=== PATIENT | male | born 1960 | race Hispanic/Latino ===

== ENCOUNTER → 2018-08-04 | Day surgery (SDC) | payer OTHER ==
[2018-07-25 14:45] LABS: HEMOGLOBIN 14.3 g/dL (14.0-18.0)
[2018-07-25 14:59] LABS: BLOOD UREA NITROGEN 8 mg/dL (7-26); BUN/CREATININE RATIO 9 (6-25); CALCIUM 9.8 mg/dL (8.4-10.2); CARBON DIOXIDE 30 mmol/L (22-29); CHLORIDE 101 mmol/L (98-107); CREATININE, SERUM 0.91 mg/dL (0.72-1.25); EST GLOMERULAR FILTRATION RATE > 60 ML/MIN (60-); GLUCOSE 106 mg/dL (74-118); SODIUM 142 mmol/L (136-145)
[~2018-08-04] MED LIST: AMLODIPINE BESY10 MG PO; BASAGLAR SC; CHONDR SU A NA/HYALUR SOD 1 EACH KIT IO ONE; CYCLOPENTOLATE HCL 2% OPTH SOLN 2 ML BTL OP ONE; EPINEPHRINE HCL INJ 1 MG/ML AMP ONE; FENOFIBRATE145 MG PO; FENTANYL CITRATE/PF 100MCG/2 ML INJ ONE; GATIFLOXACIN(OPTH) 5 ML LIQD ONE; KLOR CON PO; LIDOCAINE 2% /EPINEPHRINE 20 ML SDV INJ ONE; LIDOCAINE HCL 2% LOCAL INJ 5 ML SDV VIAL INJ ONE; LIDOCAINE HCL-PF 4% 40 MG/1 ML 5ML AMP ONE; PHENYLEPHRINE HCL 2 ML DROPS ONE; PILOCARPINE HCL(OPTH) 15 ML LIQD ONE; POTASSIUM CHLORIDE 20MEQ/100ML 100 ML ONE; POVIDONE IODINE 5% (OPTH) 30 ML BTL ONE; PROPOFOL IV EMULSION 10 MG/ML 20 ML VIAL ONE; TOBRAMYCIN/DEXAMETHASONE(OPTH) 3.5 GM TUBE ONE
--- OUTSIDE RECORDS SUMMARY | 2018-08-04 05:26 | XMS REPORT | Continuity of Care Document ---
Author Author [facility] Interface Address Unknown Phone Unavailable Problems Problem Status Onset Date Classification Date Reported Comments Source DIZZINESS / SOB Active 06/18/2017 [facility] SIRS, PNA, DYSURIA Active 06/18/2017 [facility] Discharge Diagnosis: Low back pain 05/04/2017 05/07/2017 [facility] LOWER BACK PAIN Active 05/03/2017 [facility] Discharge Diagnosis: Fever 10/08/2016 10/11/2016 [facility] FEVER / CHILLS Active 10/08/2016 [facility] ELEVATED BLOOD PRESSURE Active 05/08/2014 [facility] TIA/HTN.RENAL INSUFF Active 05/08/2014 [facility] Chest pain Active Problem 10/11/2016 [facility] Excessive daytime sleepiness Active Problem 03/19/2018 [facility] Fatigue Active Problem 03/19/2018 [facility] HTN - Hypertension Active Problem 03/19/2018 [facility] Hyperlipidemia Active Problem 03/19/2018 [facility] Hypertension Active Problem 03/19/2018 [facility] Hypokalemia Active Problem 03/19/2018 [facility] Low testosterone Active Problem 03/19/2018 [facility] Abnormal liver enzymes Active Problem 03/19/2018 [facility] Moderate major depression Active Problem 03/19/2018 [facility] Depression Resolved Problem 03/19/2018 [facility] Obstructive sleep apnea Active Problem 03/19/2018 [facility] Prediabetes Active Problem 03/19/2018 [facility] Sleep apnea Active Problem 03/19/2018 [facility] SEPSIS, UNSPECIFIED ORGANISM Active [facility] PNEUMONIA, UNSPECIFIED ORGANISM Active [facility] Medications Medication Details Route Status Patient Instructions Ordering Provider Order Date Source sertraline 50 mg oral tablet 50 mg=1 tab, PO, Daily, # 90 tab, 1 Refill(s), Pharmacy: [id number] Active 08/19/[facility] amLODIPine 10 mg oral tablet 10 mg=1 tab, PO, Daily, # 90 tab, 1 Refill(s), Pharmacy: [id number] Active 08/19/2017 [facility] Testosterone Cypionate 200 mg/mL intramuscular solution 200 mg=1 ml, IM, q2wk, Please provide 3cc syringe with 23G x 1inch needles for IM injections, # 10 mL, 2 Refill(s) Active 08/11/2017 [facility] Saccharomyces boulardii lyo 250 MG Oral Capsule [Florastor] 250 mg=1 cap, PO, BID, PRN for loose stool, X 5 day, # 10 cap, 0 Refill(s), Pharmacy: [id number] Active 06/22/2017 [facility] levofloxacin 250 mg oral tablet 750 mg=3 tab, PO, [id number], X 5 day, # 15 tab, 0 Refill(s), Pharmacy: [id number] Active 06/22/2017 [facility] Levaquin 750 mg, 3 tab, Route: PO, Drug form: TAB, [id number], Dosing Weight 71.008, kg, Start date: 06/21/17 23:00:00 CDT, Duration: 7 day, Stop date: 06/27/17 23:00:00 CDT, ABX Indication: Other (specify in Comme nts)Notes: Do not give w/antacids, dairy pdt & minerals Take 1 hr before or 2 hr after dairy pdt (Same as:Levaquin) No Longer Active 06/22/2017 [facility] potassium chloride 20 mEq oral tablet, extended release 20 mEq, 1 tab, Route: PO, Drug form: ERTAB, Daily, Dosing Weight 71.008, kg, Start date: 06/21/17 9:00:00 CDT, Duration: 30 day, Stop date: 07/20/17 9:00:00 CDTNotes: (Same as: K-Dur 20) "Do Not Crush" With food and full glass of water No Longer Active 06/21/2017 [facility] Fenofibrate 145 MG Oral Tablet 145 mg, 1 tab, Route: PO, Drug form: TAB, Daily, Dosing Weight 71.008, kg, Start date: 06/21/17 9:00:00 CDT, Duration: 30 day, Stop date: 07/20/17 9:00:00 CDTNotes: (Same as: Tricor) No Longer Active 06/21/2017 [facility] Bisoprolol 10 mg, 2 tab, Route: PO, Drug form: TAB, Daily, Dosing Weight 71.008, kg, Start date: 06/21/17 9:00:00 CDT, Duration: 30 day, Stop date: 07/20/17 9:00:00 CDTNotes: (Same As: Zebeta) No Longer Active 06/21/2017 [facility] Amlodipine 5 mg, 1 tab, Route: PO, Drug form: TAB, Daily, Dosing Weight 71.008, kg, Start date: 06/20/17 21:00:00 CDT, Duration: 30 day, Stop date: 07/20/17 9:00:00 CDTNotes: (Same as: Norvasc) No Longer Active 06/21/2017 [facility] Potassium Chloride 20 mEq, 1 tab, Route: PO, Drug form: ERTAB, Q2H, Dosing Weight 71.008, kg, Start date: 06/20/17 12:00:00 CDT, Duration: 2 doses or times, Stop date: 06/20/17 14:00:00 CDTNotes: (Same as: K- Dur 20) "Do Not Crush" With food and full glass of water Inactive 06/20/2017 [facility] Rocephin + sodium chloride 0.9% INJ 100 mL 2 gm, Route: IVPB, [id number], Dosing Weight 71.364, kg, Start date: 06/20/17 9:00:00 CDT, Duration: 5 day, Stop date: 06/24/17 21:00:00 CDT, ABX Indication: Other (specify in Comments)Notes: (Same As: Rocephin). Use with 100 mL NS and infuse over 30 min MEDICATION WASTE Product Size: 2000 mg Product Wasted: ___ mg No Longer Active 06/20/2017 [facility] vancomycin + sodium chloride 0.9% INJ 250 mL 1,000 mg, Route: IVPB, [id number], Dosing Weight 71.008, kg, Start date: 06/20/17 1:00:00 CDT, Duration: 2 day, Stop date: 06/21/17 13:00:00 CDT, ABX Indication: Fever of Unknown Source 0-60 days of ageNotes: TIME CRITICAL MEDICATION (Same As: Vancocin) Infusion rate 2001 mg: infuse over 2.5 hours MEDICATION WASTE Product Size: 1000 mg Product Wasted: ___ mg No Longer Active 06/20/2017 [facility] Acetaminophen 325 MG / Hydrocodone Bitartrate 5 MG Oral Tablet [Welton 5/325] 1 tab, Route: PO, Drug Form: TAB, Dosing Weight 71.008, kg, Q4H, PRN Pain Score 1-3, Start date: 06/19/17 20:41:00 CDT, Duration: 30 day, Stop date: 07/19/17 20:40:00 CDTNotes: (Same as: Welton 325/5) Do not exceed 4gm/day of acetaminophen. No Longer Active 06/20/2017 [facility] Vancomycin 1,000 mg, Route: IVPB, [id number], Dosing Weight 71.008, kg, Start date: 06/19/17 20:00:00 CDT, Duration: 2 day, Stop date: 06/21/17 8:00:00 CDT, ABX Indication: Fever of Unknown Source 0-60 days of age Notes: TIME CRITICAL MEDICATION (Same As: Vancocin) Infusion rate 2001 mg: infuse over 2.5 hours MEDICATION WASTE Product Size: 1000 mg Product Wasted: ___ mg Inactive 06/20/2017 [facility] cefTRIAXone + sodium chloride 0.9% INJ 100 mL 1 gm, Route: IVPB, ONCE, Start date: 06/19/17 13:32:00 CDT, Stop date: 06/19/17 13:32:00 CDT, ABX Indication: Other (specify in Comments)Notes: (Same As: Rocephin). Use with 100 mL NS and infuse over 30 min MEDICATION WASTE Product Size: 1000 mg Product Wasted: ___ mg Inactive 06/19/2017 [facility] Ampicillin 2 gm, Route: IVPB, [id number], Dosing Weight 71.364, kg, Start date: 06/19/17 12:00:00 CDT, Duration: 30 day, Stop date: 07/19/17 6:00:00 CDTNotes: (Same as: Becki) MEDICATION WASTE Product Size: 2000 mg Product Wasted: ___ mg Inactive 06/19/2017 [facility] Rocephin 2 gm, Route: IVPB, [id number], Dosing Weight 71.364, kg, Start date: 06/19/17 12:00:00 CDT, Duration: 5 day, Stop date: 06/24/17 9:00:00 CDT, ABX Indication: Other (specify in Comments)Notes: (Same As: Anurag ephin). Use with 100 mL NS and infuse over 30 min MEDICATION WASTE Product Size: 2000 mg Product Wasted: ___ mg Inactive 06/19/2017 [facility] Azithromycin 500 mg, Route: IVPB, [id number], Dosing Weight 70.909, kg, Priority: Routine, Start date: 06/19/17 12:00:00 CDT, Duration: 5 day, Stop date: 06/23/17 21:00:00 CDT, ABX Indication: PneumoniaNotes: (Same As: Zithromax IV) Inactive 06/19/2017 [facility] Tylenol 325 mg, 1 tab, Route: PO, Drug form: TAB, Q6H, Dosing Weight 71.364, kg, PRN Pain Score 1-3, Start date: 06/19/17 11:14:00 CDT, Duration: 30 day, Stop date: 07/19/17 11:13:00 CDTNotes: Do not exceed 4 gm/day. (Same as: Tylenol) No Longer Active 06/19/2017 [facility] Vancomycin 1 gm, Route: IV, ONCE, Dosing Weight 71.364, kg, Priority: NOW, Start date: 06/19/17 11:13:00 CDT, Stop date: 06/19/17 11:13:00 CDT, ABX Indication: PneumoniaNotes: TIME CRITICAL MEDICATION (Same As: Vancocin) Infusion rate 2001 mg: infuse over 2.5 hours MEDICATION WASTE Product Size: 1000 mg Product Wasted: ___ mg Inactive 06/19/2017 [facility] Ceftriaxone 1 gm, Route: IVPB, [id number], Dosing Weight 70.909, kg, Priority: Routine, Start date: 06/19/17 10:00:00 CDT, Duration: 5 day, Stop date: 06/23/17 10:00:00 CDT, ABX Indication: PneumoniaNotes: (Same As: Wyatt diamond). Use with 100 mL NS and infuse over 30 min MEDICATION WASTE Product Size: 1000 mg Product Wasted: ___ mg Inactive 06/19/2017 [facility] influenza virus vaccine, inactivated 0.5 mL, Route: IM, Drug Form: SUSP, Daily, Start date: 06/19/17 9:00:00 CDT, Duration: 1 doses or times, Stop date: 06/19/17 9:00:00 CDTNotes: (Same as: Fluzone Quadrivalent, Fluarix Quadrivalent) For 3 years of age and older (0.5 mL IM) Shake well before use Inactive 06/19/2017 [facility] Tylenol 650 mg, 20.3 mL, Route: PO, Drug form: LIQ, Q6H, Dosing Weight 71.364, kg, PRN Pain 4-6/Temp > 100.4 F, Start date: 06/19/17 4:08:00 CDT, Duration: 30 day, Stop date: 07/19/17 4:07:00 CDTNotes: Max [id number]/day (4 gm/day). (Same as: Tylenol) Inactive 06/19/2017 [facility] Motrin 400 mg, 1 tab, Route: PO, Drug form: TAB, ONCE, Dosing Weight 71.364, kg, Start date: 06/18/17 18:30:00 CDT, Stop date: 06/18/17 18:30:00 CDTNotes: (Same as: Motrin) "Do Not Crush" Give with food. Inactive 06/18/2017 [facility] Ondansetron 4 mg, 2 mL, Route: IVP, Drug form: INJ, Q6H, Dosing Weight 70.909, kg, PRN Nausea & Vomiting, Start date: 06/18/17 14:03:00 CDT, Duration: 30 day, Stop date: 07/18/17 14:02:00 CDTNotes: (Same as: Zofran) MEDICATION WASTE Product Size: 4 mg Product Wasted: ___ mg No Longer Active 06/18/2017 [facility] Potassium Chloride 10 mEq, 100 mL, Route: IVPB, Drug form: INJ, Q1H, Dosing Weight 70.909, kg, Total Dose=40 meq, Start date: 06/18/17 12:00:00 CDT, Duration: 4 doses or times, Stop date: 06/18/17 15:00:00 CDT, Peripheral LineNotes: Infuse at a rate of 10 mEq/hr. (Same as: KCL) Inactive 06/18/2017 [facility] Azithromycin 500 mg, Route: IVPB, ONCE, Dosing Weight 70.909, kg, Priority: STAT, Start date: 06/18/17 11:56:00 CDT, Duration: 1 doses or times, Stop date: 06/18/17 11:56:00 CDT, ABX Indication: PneumoniaNotes: (Same As: Zithromax IV) Inactive 06/18/2017 [facility] Tylenol 500 mg, PO, Q6H, PRN Pain 1-3/Temp > 100.4 F, 0 Refill(s) No Longer Active 06/18/2017 [facility] Rocephin 1 gm, Route: IVPB, Drug form: PDR/INJ, ONCE, Dosing Weight 70.909, kg, Priority: STAT, Start date: 06/18/17 9:45:00 CDT, Duration: 1 doses or times, Stop date: 06/18/17 9:45:00 CDT, ABX Indication: ED - Suspected Sepsis Inactive 06/18/2017 [facility] Sodium Chloride 0.9% (Bolus) IV 1,000 mL, Infuse Over: 1 hr, Route: IV, ONCE, Priority: STAT, Dosing Weight 70.909 kg, Start date: 06/18/17 9:44:00 CDT, Duration: 1 doses or times, Stop date: 06/18/17 9:44:00 CDT Inactive 06/18/2017 [facility] Acetaminophen 1,000 mg, Route: PO, Drug form: TAB, ONCE, Dosing Weight 70.909, kg, Priority: STAT, Start date: 06/18/17 9:44:00 CDT, Stop date: 06/18/17 9:44:00 CDT Inactive 06/18/2017 [facility] tramadol hydrochloride 50 MG Oral Tablet [Ultram] 25 mg=0.5 tab, PO, Q6H, PRN pain, X 3 day, # 6 tab, 0 Refill(s) Active 05/04/2017 [facility] Potassium Chloride 40 mEq, 2 tab, Route: PO, Drug form: ERTAB, ONCE, Dosing Weight 74.091, kg, Priority: STAT, Start date: 05/04/17 3:09:00 CDT, Stop date: 05/04/17 3:09:00 CDTNotes: (Same as: K-Dur 20) "Do Not Crush" With food and full glass of water Inactive 05/04/2017 [facility] Ketorolac 15 mg, 1 mL, Route: IVP, Drug form: INJ, ONCE, Dosing Weight 74.091, kg, Priority: STAT, Start date: 05/04/17 2:28:00 CDT, Stop date: 05/04/17 2:28:00 CDTNotes: (Same as:Toradol) IV bolus must be given >15 seconds. Give IM administration slowly and deeply into the muscle. Not for use > 4 days. Inactive 05/04/2017 [facility] Ondansetron 4 mg, Route: IVP, ONCE, Dosing Weight 69.091, kg, Priority: STAT, Start date: 10/08/16 6:52:00 SEROLOGIST, Stop date: 10/08/16 6:52:00 SEROLOGIST Inactive 10/08/2016 [facility] Acetaminophen 650 mg, Route: PO, Drug form: TAB, ONCE, Dosing Weight 69.091, kg, Priority: STAT, Start date: 10/08/16 6:52:00 SEROLOGIST, Stop date: 10/08/16 6:52:00 SEROLOGIST Inactive 10/08/2016 [facility] Saline Flush 0.9% 10 mL, Route: IVP, Drug Form: INJ, Dosing Weight 69.091, kg, PRN, PRN Line Flush, Start date: 10/08/16 6:52:00 SEROLOGIST, Duration: 30 day, Stop date: 11/07/16 6:51:00 CSTNotes: (Same as: BD Posiflush) Inactive 10/08/2016 [facility] Sodium Chloride 0.154 MEQ/ML Injectable Solution 1,000 mL, Infuse Over: 1 hr, Route: IV, ONCE, Priority: STAT, Dosing Weight 69.091 kg, Start date: 10/08/16 6:52:00 SEROLOGIST, Duration: 1 doses or times, Stop date: 10/08/16 6:52:00 SEROLOGIST Inactive 10/08/2016 [facility] Lipitor 10 mg, 1 tab, Route: PO, Drug form: TAB, QPM, Dosing Weight 65.909, kg, Start date: 05/09/14 17:00:00, Duration: 30 day, Stop date: 06/07/14 17:00:00Notes: (Same As: Lipitor) Inactive 05/09/2014 [facility] amLODIPine 5 mg oral tablet 5 mg=1 tab, PO, Daily, # 30 tab, 0 Refill(s) Active 05/09/2014 [facility] Potassium Chloride 40 mEq, 30 mL, Route: PO, Drug form: LIQ, ONCE, Dosing Weight 65.909, kg, Start date: 05/09/14 10:57:00, Stop date: 05/09/14 10:57:00Notes: (Same as: Potassium Chloride) Inactive 05/09/2014 [facility] clopidogrel 75 mg, 1 tab, Route: PO, Drug form: TAB, Daily, Dosing Weight 65.909, kg, Start date: 05/09/14 9:00:00, Duration: 30 day, Stop date: 06/07/14 9:00:00Notes: (Same As: Plavix) Inactive 05/09/2014 [facility] Aspirin 325 MG Enteric Coated Tablet 325 mg, 1 tab, Route: PO, Drug form: ECTAB, Daily, Dosing Weight 65.909, kg, Start date: 05/09/14 9:00:00, Duration: 30 day, Stop date: 06/07/14 9:00:00Notes: (Do Not Crush) Do not crush or chew. Inactive 05/09/2014 [facility] Norvasc 2.5 mg, 1 tab, Route: PO, Drug form: TAB, BID, Dosing Weight 65.909, kg, Start date: 05/08/14 17:00:00, Duration: 30 day, Stop date: 06/07/14 9:00:00Notes: (Same as: Norvasc) Inactive 05/08/2014 [facility] Norvasc 5 mg, 1 tab, Route: PO, Drug form: TAB, Daily, Dosing Weight 65.909, kg, Priority: NOW, Start date: 05/08/14 16:24:00, Duration: 30 day, Stop date: 06/07/14 9:00:00Notes: (Same as: Norvasc) No Longer Active 05/08/2014 [facility] Acetaminophen 325 MG / Hydrocodone Bitartrate 5 MG Oral Tablet [Welton 5/325] 1 tab, Route: PO, Drug Form: TAB, Dosing Weight 65.909, kg, Q6H, PRN Pain Score 1-3, Start date: 05/08/14 16:19:00, Duration: 30 day, Stop date: 06/07/14 16:18:00Notes: (Same as: Welton 325/5) Do not exceed 4gm/day of acetaminophen. No Longer Active 05/08/2014 [facility] Hydralazine 10 mg, 0.5 mL, Route: IV, Drug form: INJ, Q6H, Dosing Weight 65.909, kg, PRN Elevated BP, Start date: 05/08/14 16:17:00, Duration: 30 day, Stop date: 06/07/14 16:16:00Notes: (Same as: Apresoline) Push over 5 minutes No Longer Active 05/08/2014 [facility] Saline Flush 0.9% 5 ml, Route: IVP, Drug Form: INJ, Dosing Weight 65.909, kg, PRN, PRN Line Flush, Start date: 05/08/14 15:22:00, Duration: 30 day, Stop date: 06/07/14 15:21:00Notes: (Same as: BD Posiflush) No Longer Active 05/08/2014 [facility] Sodium Chloride 0.154 MEQ/ML Injectable Solution 1,000 mL, Rate: 125 ml/hr, Infuse over: 8 hr, Route: IV, Dosing Weight 65.909 kg, Total Volume: 1,000, Start date: 05/08/14 15:22:00, Duration: 30 day, Stop date: 06/07/14 15:21:00 No Longer Active 05/08/2014 [facility] aspirin 325 mg tablet 325 mg, 1 tab, Route: PO, Drug form: TAB, Daily, Dosing Weight 65.909, kg, Priority: STAT, Start date: 05/08/14 15:22:00, Duration: 30 day, Stop date: 06/07/14 9:00:00Notes: Take with food. Inactive 05/08/2014 [facility] Ondansetron 4 mg, 2 mL, Route: IVP, Drug form: INJ, Q8H, Dosing Weight 65.909, kg, PRN Nausea & Vomiting, Start date: 05/08/14 15:22:00, Duration: 30 day, Stop date: 06/07/14 15:21:00Notes: (Same as: Zofran) No Longer Active 05/08/2014 [facility] Docusate 100 mg, 1 cap, Route: PO, Drug form: CAP, BID, Dosing Weight 65.909, kg, PRN Constipation, Start date: 05/08/14 15:22:00, Duration: 30 day, Stop date: 06/07/14 15:21:00Notes: (Same as: Colace) (Do Not Crush) No Longer Active 05/08/2014 [facility] Acetaminophen 650 mg, 20.3 mL, Route: PO, Drug form: LIQ, Q4H, Dosing Weight 65.909, kg, PRN Pain 1-3/Temp > 100.4 F, Start date: 05/08/14 15:22:00, Duration: 30 day, Stop date: 06/07/14 15:21:00Notes: Max viji [id number]/day (4 gm/day). (Same as: Tylenol) No Longer Active 05/08/2014 [facility] aspirin 325 mg tablet 325 mg, Route: PO, Drug form: TAB, ONCE, Dosing Weight 65.909, kg, dysphagia screen first, Priority: STAT, Start date: 05/08/14 14:03:00, Stop date: 05/08/14 14:03:00 Inactive 05/08/2014 [facility] Potassium Chloride 40 mEq, 2 tab, Route: PO, Drug form: ERTAB, ONCE, Dosing Weight 65.909, kg, Priority: STAT, Start date: 05/08/14 13:35:00, Stop date: 05/08/14 13:35:00Notes: (Same as: K-Dur 20) "Do Not Crush" With food and full glass of water Inactive 05/08/2014 [facility] aspirin 325 mg tablet 325 mg, 1 tab, Route: PO, Drug form: TAB, ONCE, Dosing Weight 65.909, kg, dysphagia screen first, Priority: STAT, Start date: 05/08/14 11:14:00, Stop date: 05/08/14 11:14:00Notes: Take with food. Inactive 05/08/2014 [facility] Aspirin / Calcium Carbonate 0 Refill(s) Active 05/08/2014 [facility] Hydrochlorothiazide 12.5 MG / Losartan Potassium 100 MG Oral Tablet 0 Refill(s) No Longer Active 05/08/2014 [facility] Allergies, Adverse Reactions, Alerts Substance Category Reaction Severity Reaction type Status Date Reported Comments Source NKFA Assertion Drug allergy Active [facility] Immunizations Immunization Date Given Site Status Last Updated Comments Source influenza virus vaccine, inactivated 06/19/2017 Not Given [facility] Results Order Name Results Value Reference Range Date Interpretation Comments Source CHEM PANEL eGFR 96 mL/min/1.73m2 06/22/2017 Result Comment: The eGFR is calculated using the CKD-EPI formula. In most young, healthy individuals the eGFR will be >90 mL/min/1.73m2. The eGFR declines with age. An eGFR of 60-89 may be normal in some populations, particularly the elderly, for whom the CKD-EPI formula has not been extensively validated. Use of the eGFR is not recommended in the following populations: Individuals with unstable creatinine concentrations, including patients and those with serious co-morbid conditions. Patients with extremes in muscle mass or diet. The data above are obtained from the National Kidney Disease Education Program (NKDEP) which additionally recommends that when the eGFR is used in patients with extremes of body mass index for purposes of drug dosing, the eGFR should be multiplied by the estimated BMI. [facility] CHEM PANEL Calcium Lvl 8.5 mg/dL 8.5 - 10.5 06/22/2017 [facility] CHEM PANEL CO2 26 meq/L 24 - 32 06/22/2017 [facility] CHEM PANEL Sodium Lvl 137 meq/L 135 - 145 06/22/2017 [facility] CHEM PANEL Creatinine Lvl 0.84 mg/dL 0.50 - 1.40 06/22/2017 [facility] CHEM PANEL Chloride Lvl 101 meq/L 95 - 109 06/22/2017 [facility] CHEM PANEL Potassium Lvl 3.5 meq/L 3.5 - 5.1 06/22/2017 [facility] CHEM PANEL BUN 10 mg/dL 7 - 22 06/22/2017 [facility] CHEM PANEL Glucose Lvl 118 mg/dL 70 - 99 06/22/2017 [facility] CHEM PANEL AGAP 13.5 meq/L 10.0 - 20.0 06/22/2017 [facility] MCH 31.3 pg 27.0 - 31.0 06/22/2017 [facility] MCHC 35.2 g/dL 32.0 - 36.0 06/22/2017 [facility] HEMATOLOGY MPV 7.5 fL 7.4 - 10.4 06/22/2017 [facility] HEMATOLOGY Platelet 258 K/CMM 133 - 450 06/22/2017 [facility] HEMATOLOGY RDW 13.6 % 11.5 - 14.5 06/22/2017 [facility] HEMATOLOGY WBC 3.7 K/CMM 3.7 - 10.4 06/22/2017 [facility] Hgb 13.2 g/dL 14.0 - 18.0 06/22/2017 [facility] RBC 4.23 M/CMM 4.70 - 6.10 06/22/2017 [facility] MCV 88.9 fL 80.0 - 94.0 06/22/2017 [facility] Hct 37.6 % 42.0 - 54.0 06/22/2017 [facility] HEMATOLOGY Eosinophils # 0.1 K/CMM 0.0 - 0.5 06/22/2017 [facility] HEMATOLOGY Monocytes 10.2 % 2.0 - 12.0 06/22/2017 [facility] Eosinophils 3.9 % 0.0 - 4.0 06/22/2017 [facility] HEMATOLOGY Segs 57.5 % 45.0 - 75.0 06/22/2017 [facility] Lymphocytes 27.9 % 20.0 - 40.0 06/22/2017 [facility] HEMATOLOGY Basophils 0.5 % 0.0 - 1.0 06/22/2017 [facility] HEMATOLOGY Segs-Bands # 2.1 K/CMM 1.5 - 8.1 06/22/2017 [facility] HEMATOLOGY Monocytes # 0.4 K/CMM 0.0 - 0.8 06/22/2017 [facility] Lymphocytes # 1.0 K/CMM 1.0 - 5.5 06/22/2017 [facility] CHEM PANEL Glucose Lvl 121 mg/dL 70 - 99 06/21/2017 [facility] HEMATOLOGY PT 13.5 s 12.0 - 14.7 06/21/2017 [facility] HEMATOLOGY INR 1.01 0.85 - 1.17 06/21/2017 [facility] CHEM PANEL Magnesium Lvl 2.1 mg/dL 1.8 - 2.4 06/21/2017 [facility] CHEM PANEL Creatinine Lvl 0.73 mg/dL 0.50 - 1.40 06/21/2017 [facility] CHEM PANEL Chloride Lvl 100 meq/L 95 - 109 06/21/2017 [facility] CHEM PANEL eGFR 102 mL/min/1.73m2 06/21/2017 Result Comment: The eGFR is calculated using the CKD-EPI formula. In most young, healthy individuals the eGFR will be >90 mL/min/1.73m2. The eGFR declines with age. An eGFR of 60-89 may be normal in some populations, particularly the elderly, for whom the CKD-EPI formula has not been extensively validated. Use of the eGFR is not recommended in the following populations: Individuals with unstable creatinine concentrations, including patients and those with serious co-morbid conditions. Patients with extremes in muscle mass or diet. The data above are obtained from the National Kidney Disease Education Program (NKDEP) which additionally recommends that when the eGFR is used in patients with extremes of body mass index for purposes of drug dosing, the eGFR should be multiplied by the estimated BMI. [facility] CHEM PANEL Potassium Lvl 3.2 meq/L 3.5 - 5.1 06/21/2017 [facility] CHEM PANEL CO2 27 meq/L 24 - 32 06/21/2017 [facility] CHEM PANEL Calcium Lvl 8.2 mg/dL 8.5 - 10.5 06/21/2017 [facility] CHEM PANEL Glucose Lvl 117 mg/dL 70 - 99 06/21/2017 [facility] CHEM PANEL BUN 7 mg/dL 7 - 22 06/21/2017 [facility] CHEM PANEL Sodium Lvl 135 meq/L 135 - 145 06/21/2017 [facility] CHEM PANEL AGAP 11.2 meq/L 10.0 - 20.0 06/21/2017 [facility] HEMATOLOGY Lymphocytes 27.6 % 20.0 - 40.0 06/21/2017 [facility] HEMATOLOGY Segs 59.4 % 45.0 - 75.0 06/21/2017 [facility] HEMATOLOGY Lymphocytes # 1.2 K/CMM 1.0 - 5.5 06/21/2017 [facility] HEMATOLOGY Basophils 0.7 % 0.0 - 1.0 06/21/2017 [facility] Segs-Bands # 2.7 K/CMM 1.5 - 8.1 06/21/2017 [facility] Monocytes 9.2 % 2.0 - 12.0 06/21/2017 [facility] Eosinophils 3.1 % 0.0 - 4.0 06/21/2017 [facility] Eosinophils # 0.1 K/CMM 0.0 - 0.5 06/21/2017 [facility] Monocytes # 0.4 K/CMM 0.0 - 0.8 06/21/2017 [facility] Platelet 209 K/CMM 133 - 450 06/21/2017 [facility] MPV 8.0 fL 7.4 - 10.4 06/21/2017 [facility] WBC 4.5 K/CMM 3.7 - 10.4 06/21/2017 [facility] Hgb 13.3 g/dL 14.0 - 18.0 06/21/2017 [facility] MCV 87.9 fL 80.0 - 94.0 06/21/2017 [facility] RBC 4.28 M/CMM 4.70 - 6.10 06/21/2017 [facility] Hct 37.6 % 42.0 - 54.0 06/21/2017 [facility] MCH 31.0 pg 27.0 - 31.0 06/21/2017 [facility] RDW 13.7 % 11.5 - 14.5 06/21/2017 [facility] MCHC 35.3 g/dL 32.0 - 36.0 06/21/2017 [facility] CHEM PANEL eGFR 94 mL/min/1.73m2 06/20/2017 Result Comment: The eGFR is calculated using the CKD-EPI formula. In most young, healthy individuals the eGFR will be >90 mL/min/1.73m2. The eGFR declines with age. An eGFR of 60-89 may be normal in some populations, particularly the elderly, for whom the CKD-EPI formula has not been extensively validated. Use of the eGFR is not recommended in the following populations: Individuals with unstable creatinine concentrations, including patients and those with serious co-morbid conditions. Patients with extremes in muscle mass or diet. The data above are obtained from the National Kidney Disease Education Program (NKDEP) which additionally recommends that when the eGFR is used in patients with extremes of body mass index for purposes of drug dosing, the eGFR should be multiplied by the estimated BMI. [facility] CHEM PANEL BUN 10 mg/dL 7 - 22 06/20/2017 [facility] CHEM PANEL Sodium Lvl 130 meq/L 135 - 145 06/20/2017 [facility] CHEM PANEL Creatinine Lvl 0.88 mg/dL 0.50 - 1.40 06/20/2017 [facility] CHEM PANEL Potassium Lvl 3.1 meq/L 3.5 - 5.1 06/20/2017 [facility] CHEM PANEL CO2 21 meq/L 24 - 32 06/20/2017 [facility] CHEM PANEL AGAP 15.1 meq/L 10.0 - 20.0 06/20/2017 [facility] CHEM PANEL Calcium Lvl 8.0 mg/dL 8.5 - 10.5 06/20/2017 [facility] CHEM PANEL B/C Ratio 11 6 - 25 06/20/2017 [facility] CHEM PANEL Chloride Lvl 97 meq/L 95 - 109 06/20/2017 [facility] CHEM PANEL Globulin 4.2 g/dL 2.7 - 4.2 06/20/2017 [facility] CHEM PANEL ALT 96 unit/L 0 - 65 06/20/2017 [facility] CHEM PANEL A/G Ratio 0.6 0.7 - 1.6 06/20/2017 [facility] CHEM PANEL Albumin Lvl 2.5 g/dL 3.5 - 5.0 06/20/2017 [facility] CHEM PANEL Total Protein 6.7 g/dL 6.4 - 8.4 06/20/2017 [facility] CHEM PANEL Bili Total 0.6 mg/dL 0.2 - 1.3 06/20/2017 [facility] CHEM PANEL AST 84 unit/L 0 - 37 06/20/2017 [facility] CHEM PANEL Alk Phos 168 unit/L 39 - 136 06/20/2017 [facility] CHEM PANEL Lactic Acid Lvl 1.4 mMol/L 0.5 - 2.2 06/20/2017 [facility] CHEM PANEL Lipase Lvl 709 unit/L 73 - 393 06/20/2017 [facility] HEMATOLOGY Platelet 162 K/CMM 133 - 450 06/20/2017 [facility] HEMATOLOGY MPV 8.4 fL 7.4 - 10.4 06/20/2017 [facility] HEMATOLOGY MCV 88.7 fL 80.0 - 94.0 06/20/2017 [facility] HEMATOLOGY MCH 31.2 pg 27.0 - 31.0 06/20/2017 [facility] MCHC 35.1 g/dL 32.0 - 36.0 06/20/2017 [facility] HEMATOLOGY RDW 13.7 % 11.5 - 14.5 06/20/2017 [facility] HEMATOLOGY WBC 4.6 K/CMM 3.7 - 10.4 06/20/2017 [facility] HEMATOLOGY RBC 4.12 M/CMM 4.70 - 6.10 06/20/2017 [facility] HEMATOLOGY Hgb 12.8 g/dL 14.0 - 18.0 06/20/2017 [facility] HEMATOLOGY Hct 36.5 % 42.0 - 54.0 06/20/2017 [facility] HEMATOLOGY Lymphocytes # 1.1 K/CMM 1.0 - 5.5 06/20/2017 [facility] HEMATOLOGY Monocytes # 0.4 K/CMM 0.0 - 0.8 06/20/2017 [facility] HEMATOLOGY Eosinophils # 0.1 K/CMM 0.0 - 0.5 06/20/2017 [facility] HEMATOLOGY Segs-Bands # 3.0 K/CMM 1.5 - 8.1 06/20/2017 [facility] Basophils 0.6 % 0.0 - 1.0 06/20/2017 [facility] Eosinophils 1.7 % 0.0 - 4.0 06/20/2017 [facility] Monocytes 9.1 % 2.0 - 12.0 06/20/2017 [facility] HEMATOLOGY Segs 65.6 % 45.0 - 75.0 06/20/2017 [facility] Lymphocytes 23.0 % 20.0 - 40.0 06/20/2017 [facility] BACTERIAL - SEROLOGY Source Strep Urine *NA* (06/20/17 12:50 AM) 06/20/2017 [facility] BACTERIAL - SEROLOGY Strep pneumoniae Ag Negative (06/20/17 12:50 AM) Negative 06/20/2017 [facility] CHEM PANEL LDH 302 unit/L 98 - 192 06/20/2017 [facility] CHEM PANEL Procalcitonin Lvl 0.33 ng/mL 0.00 - 0.10 06/20/2017 [facility] IMMUNOLOGY C-REACTIVE PROTEIN 131.0 mg/L <=2.9 mg/L 06/20/2017 [facility] IMMUNOLOGY Hep Bs Ag Negative *NA* (06/19/17 8:21 PM) Negative 06/20/2017 [facility] Hep A IgM Negative *NA* (06/19/17 8:21 PM) Negative 06/20/2017 [facility] Hep B Core IgM Negative *NA* (06/19/17 8:21 PM) Negative 06/20/2017 [facility] Hep C Ab Negative *NA* (06/19/17 8:21 PM) 06/20/2017 [facility] Brain wo contrast CT Brain wo contrast CT Patient Name: TRUDI ESCAMILLA : 1960; Age: 57 years y/o Male MR: [id number] Study: Brain wo contrast CT 06/19/2017 11:16 AM CDT Ordering Physician: Salvador Carpio MD Comparison: None CT Radiation Dose DLP mGy-cm Clinical Indication: ct dlp:660 mgy/cm - fever, headache since wednesday; ; cephalgia Multiple computerized axial tomograms of the head were obtained without contrast. 2-D coronal and sagittal reformatted images were obtained. Greater than age-appropriate cortical and cerebellar volume loss is noted with compensatory enlargement of the ventricles and subarachnoid spaces. Vascular calcification is noted at the carotid siphons and/or vertebrobasilar arteries. There is no acute cortical infarction, hemorrhage or mass lesion noted. No mass effect or midline shift. Ventricles are otherwise normal in size, shape and position. The base of skull and bony calvarium are intact. Increased density of the intracranial vascular structures is noted suggestive of hemoconcentration. Mucosal thickening is noted at the ethmoid air cells bilaterally. Nasal septal deviation convex to the left. Polypoid mucosal thickening at the right maxillary antrum. Mastoid air cells and paranasal sinuses are otherwise clear. IMPRESSION: 1. No acute intracranial abnormality is noted. 2. Mild generalized cerebral and cerebellar atrophy for age. 3. Chronic sinusitis. SL: [id number] 06/19/2017 - - Read by: Aren Bermudez MD Dictated Date/time: 06/19/17 12:12 Electronically Signed by: Aren Bermudez MD 06/19/17 12:18 FINAL REPORT [facility] CHEM PANEL Bili Total 0.7 mg/dL 0.2 - 1.3 06/19/2017 [facility] CHEM PANEL Alk Phos 143 unit/L 39 - 136 06/19/2017 [facility] CHEM PANEL AST 74 unit/L 0 - 37 06/19/2017 [facility] CHEM PANEL A/G Ratio 0.5 0.7 - 1.6 06/19/2017 [facility] CHEM PANEL Globulin 4.8 g/dL 2.7 - 4.2 06/19/2017 [facility] CHEM PANEL ALT 74 unit/L 0 - 65 06/19/2017 [facility] CHEM PANEL Total Protein 7.4 g/dL 6.4 - 8.4 06/19/2017 [facility] CHEM PANEL Albumin Lvl 2.6 g/dL 3.5 - 5.0 06/19/2017 [facility] CHEM PANEL B/C Ratio 15 6 - 25 06/19/2017 [facility] CHEM PANEL Magnesium Lvl 2.1 mg/dL 1.8 - 2.4 06/19/2017 [facility] LIPIDS VLDL 45 06/19/2017 [facility] LIPIDS LDL (Calculated) 71 mg/dL <=99 mg/dL 06/19/2017 [facility] LIPIDS Chol 138 mg/dL <=199 mg/dL 06/19/2017 [facility] LIPIDS HDL 22 mg/dL >=61 mg/dL 06/19/2017 [facility] LIPIDS Trig 227 mg/dL <=149 mg/dL 06/19/2017 [facility] LIPIDS CHD Risk 6.27 4.00 - 7.30 06/19/2017 [facility] SPECIAL CHEMISTRY Hgb A1C 6.5 % <=5.6 % 06/19/2017 [facility] VIRAL - SEROLOGY Influ B Negative (06/18/17 12:45 PM) Negative 06/18/2017 [facility] VIRAL - SEROLOGY Influ A Negative (06/18/17 12:45 PM) Negative 06/18/2017 [facility] CARDIAC ENZYMES Troponin-I 0.03 ng/mL 0.00 - 0.40 06/18/2017 [facility] CHEM PANEL Bili Total 0.8 mg/dL 0.2 - 1.3 06/18/2017 [facility] CHEM PANEL Alk Phos 146 unit/L 39 - 136 06/18/2017 [facility] CHEM PANEL AST 92 unit/L 0 - 37 06/18/2017 [facility] CHEM PANEL ALT 74 unit/L 0 - 65 06/18/2017 [facility] CHEM PANEL Total Protein 8.2 g/dL 6.4 - 8.4 06/18/2017 [facility] CHEM PANEL B/C Ratio 11 6 - 25 06/18/2017 [facility] CHEM PANEL A/G Ratio 0.7 0.7 - 1.6 06/18/2017 [facility] CHEM PANEL Globulin 4.9 g/dL 2.7 - 4.2 06/18/2017 [facility] CHEM PANEL Albumin Lvl 3.3 g/dL 3.5 - 5.0 06/18/2017 [facility] CHEM PANEL Lipase Lvl 670 unit/L 73 - 393 06/18/2017 [facility] CHEM PANEL Lactic Acid Lvl 1.5 mMol/L 0.5 - 2.2 06/18/2017 [facility] URINE AND STOOL UA Urobilinogen <=1.0 mg/dL 0.1 - 1.0 06/18/2017 [facility] URINE AND STOOL UA Color Jaqueline 06/18/2017 [facility] URINE AND STOOL UA Sq Epi None Seen 06/18/2017 [facility] URINE AND STOOL UA Ketones Trace mg/dL Negative mg/dL 06/18/2017 [facility] URINE AND STOOL UA pH 6.0 5.0 - 8.0 06/18/2017 [facility] URINE AND STOOL UA Spec Grav 1.026 <=1.030 06/18/2017 [facility] URINE AND STOOL UA Turbidity Slight *ABN* (06/18/17 9:53 AM) Clear 06/18/2017 [facility] URINE AND STOOL UA Mucus Few /LPF None Seen /LPF 06/18/2017 [facility] URINE AND STOOL UA Nitrite Negative (06/18/17 9:53 AM) Negative 06/18/2017 [facility] URINE AND STOOL UA Blood Moderate *ABN* (06/18/17 9:53 AM) Negative 06/18/2017 [facility] URINE AND STOOL UA Bili Negative *NA* (06/18/17 9:53 AM) Negative 06/18/2017 [facility] URINE AND STOOL UA Bacteria Occasional /HPF None Seen /HPF 06/18/2017 [facility] URINE AND STOOL UA RBC 6 /HPF 0 - 2 06/18/2017 [facility] URINE AND STOOL UA Leuk Est Negative (06/18/17 9:53 AM) Negative 06/18/2017 [facility] URINE AND STOOL UA WBC 9 /HPF 0 - 5 06/18/2017 [facility] URINE AND STOOL UA Glucose 50 mg/dL Negative mg/dL 06/18/2017 [facility] URINE AND STOOL UA Protein 100 mg/dL Negative mg/dL 06/18/2017 [facility] Chest 1view DX Chest 1view DX CHEST, 1 VIEW HISTORY: - sepsis; shortness of breath COMPARISON: 10/08/2016 FINDINGS: Left retrocardiac atelectasis or infiltrate. Right lung is clear. No pleural effusion or pneumothorax. Heart size normal. No acute osseous abnormality. SL: ANIRUDH 06/18/2017 - - Read by: Davi Cobb MD Dictated Date/time: 06/18/17 09:54 Electronically Signed by: Davi Cobb MD 06/18/17 09:55 FINAL REPORT [facility] CHEM PANEL eGFR 82 mL/min/1.73m2 05/04/2017 Result Comment: The eGFR is calculated using the CKD-EPI formula. In most young, healthy individuals the eGFR will be >90 mL/min/1.73m2. The eGFR declines with age. An eGFR of 60-89 may be normal in some populations, particularly the elderly, for whom the CKD-EPI formula has not been extensively validated. Use of the eGFR is not recommended in the following populations: Individuals with unstable creatinine concentrations, including patients and those with serious co-morbid conditions. Patients with extremes in muscle mass or diet. The data above are obtained from the National Kidney Disease Education Program (NKDEP) which additionally recommends that when the eGFR is used in patients with extremes of body mass index for purposes of drug dosing, the eGFR should be multiplied by the estimated BMI. [facility] CHEM PANEL Glucose Lvl 135 mg/dL 70 - 99 05/04/2017 [facility] CHEM PANEL Sodium Lvl 138 meq/L 135 - 145 05/04/2017 [facility] CHEM PANEL Creatinine Lvl 1.00 mg/dL 0.50 - 1.40 05/04/2017 [facility] CHEM PANEL Potassium Lvl 3.0 meq/L 3.5 - 5.1 05/04/2017 Result Comment: Critical Result(s) called to Boaz Ponce RN_ at 05/04/2017 03:00 by Ronal Douglas Read back OK. [facility] CHEM PANEL Chloride Lvl 102 meq/L 95 - 109 05/04/2017 [facility] CHEM PANEL AGAP 10.0 meq/L 10.0 - 20.0 05/04/2017 [facility] CHEM PANEL CO2 29 meq/L 24 - 32 05/04/2017 [facility] CHEM PANEL Calcium Lvl 8.7 mg/dL 8.5 - 10.5 05/04/2017 [facility] CHEM PANEL BUN 10 mg/dL 7 - 22 05/04/2017 [facility] HEMATOLOGY Basophils 0.6 % 0.0 - 1.0 05/04/2017 [facility] HEMATOLOGY Eosinophils 3.0 % 0.0 - 4.0 05/04/2017 [facility] HEMATOLOGY Monocytes 7.6 % 2.0 - 12.0 05/04/2017 [facility] HEMATOLOGY Lymphocytes 28.3 % 20.0 - 40.0 05/04/2017 [facility] HEMATOLOGY Segs 60.5 % 45.0 - 75.0 05/04/2017 [facility] Lymphocytes # 1.8 K/CMM 1.0 - 5.5 05/04/2017 [facility] HEMATOLOGY Eosinophils # 0.2 K/CMM 0.0 - 0.5 05/04/2017 [facility] HEMATOLOGY Monocytes # 0.5 K/CMM 0.0 - 0.8 05/04/2017 [facility] Segs-Bands # 3.9 K/CMM 1.5 - 8.1 05/04/2017 [facility] MCV 89.2 fL 80.0 - 94.0 05/04/2017 [facility] MCHC 35.2 g/dL 32.0 - 36.0 05/04/2017 [facility] MCH 31.4 pg 27.0 - 31.0 05/04/2017 [facility] Hgb 14.2 g/dL 14.0 - 18.0 05/04/2017 [facility] RBC 4.53 M/CMM 4.70 - 6.10 05/04/2017 [facility] Hct 40.4 % 42.0 - 54.0 05/04/2017 [facility] MPV 7.6 fL 7.4 - 10.4 05/04/2017 [facility] RDW 14.2 % 11.5 - 14.5 05/04/2017 [facility] Platelet 168 K/CMM 133 - 450 05/04/2017 [facility] WBC 6.4 K/CMM 3.7 - 10.4 05/04/2017 [facility] URINE AND STOOL UA Protein Negative mg/dL Negative mg/dL 05/04/2017 [facility] URINE AND STOOL UA Glucose Negative mg/dL Negative mg/dL 05/04/2017 [facility] URINE AND STOOL UA Ketones Negative mg/dL Negative mg/dL 05/04/2017 [facility] URINE AND STOOL UA Leuk Est Negative (05/04/17 2:35 AM) Negative 05/04/2017 [facility] URINE AND STOOL UA Blood Negative (05/04/17 2:35 AM) Negative 05/04/2017 [facility] URINE AND STOOL UA RBC 1 /HPF 0 - 2 05/04/2017 [facility] URINE AND STOOL UA Bili Negative *NA* (05/04/17 2:35 AM) Negative 05/04/2017 [facility] URINE AND STOOL UA Nitrite Negative (05/04/17 2:35 AM) Negative 05/04/2017 [facility] URINE AND STOOL UA Sq Epi None Seen 05/04/2017 [facility] URINE AND STOOL UA Urobilinogen <=1.0 mg/dL 0.1 - 1.0 05/04/2017 [facility] URINE AND STOOL UA Color Ltyellow 05/04/2017 [facility] URINE AND STOOL UA Turbidity Clear (05/04/17 2:35 AM) Clear 05/04/2017 [facility] URINE AND STOOL UA pH 7.0 5.0 - 8.0 05/04/2017 [facility] URINE AND STOOL UA Spec Grav 1.004 <=1.030 05/04/2017 [facility] Renal Stone CT Renal Stone CT RENAL STONE PROTOCOL CT ABDOMEN AND PELVIS WITHOUT CONTRAST DATED 05/04/2017. CLINICAL INDICATION: Acute flank pain. COMPARISON: CT abdomen dated 10/08/2016 TECHNIQUE: A renal stone protocol CT of the abdomen and pelvis was performed using helical images from the upper abdomen through the pubic symphysis without bowel or intravenous contrast. Axial and coronal reformations were performed. CT radiation dose: QOF=581 mGy-cm FINDINGS: RENAL: A 3 mm calcified stone is identified in the lower pole the right kidney. There is no CT evidence of acute renal collecting system obstruction or calcified ureteral stone. The kidneys are normal in size and contour. Mild nonspecific stranding is again noted in the perinephric fat bilaterally. SOLID ORGANS: The liver is enlarged (20 cm) and demonstrates evidence of diffuse fatty infiltration. No CT abnormalities of the spleen, pancreas or adrenal glands are identified. The patient is status post cholecystectomy. No significant biliary ductal dilatation is present. BOWEL: Bowel assessment is limited by the absence of bowel contrast. Several diverticula of the descending and sigmoid colon are noted without CT evidence of acute diverticulitis. There is no evidence of intestinal obstruction. The appendix is well-visualized and is not acutely inflamed. PERITONEUM: There is no CT evidence of free intraperitoneal air or significant free intraperitoneal fluid. RETROPERITONEUM: The abdominal aorta is normal in caliber. No enlarged retroperitoneal lymph nodes are detected. PELVIS: The prostate gland appears enlarged (5.5 x 4.2 cm). Bladder assessment is limited by low bladder volume. LOWER CHEST: The lung bases appear clear acute disease. The 5 mm noncalcified nodule in the periphery of the left lower lobe (series 2, image 8) and a 4 to 5 mm noncalcified nodule in the right middle lobe (series 2, image 1) appear stable when compared the prior study. IMPRESSION: 1. Right nephrolithiasis. No CT evidence of acute renal collecting system obstruction or calcified ureteral stone. 2. Diverticulosis without CT evidence of acute diverticulitis. 3. Small (4 to 5 mm) noncalcified nodules are identified in the right middle lobe and left lower lobe that are stable when compared to a prior CT dated 10/08/2016. Additional follow-up is recommended in September 2017 2 document continued stability. SL:131 05/04/2017 - - Read by: Mansoor Kohli MD Dictated Date/time: 05/04/17 03:09 Electronically Signed by: Mansoor Kohli MD 05/04/17 03:18 FINAL REPORT [facility] Spine lumbar 2 or 3 views DX Spine lumbar 2 or 3 views DX Clinical Indication: Pain Post Trauma - Lower back pain ?3 days. Comparison: None FINDINGS: The AP, lateral and spot views of the lumbar spine show five non rib bearing lumbar vertebral segments. VERTEBRAL BODIES: There is normal alignment. There are no fractures or spondylolisthesis. DISKS: The disc spaces are normal. POSTERIOR ELEMENTS: The spinous processes and transverse processes are normal. The facet joints appear unremarkable. OTHER: The paraspinal soft tissues appear unremarkable. The visualized sacroiliac joints are unremarkable. If there is further concern or neurological abnormalities on clinical exam, MRI or CT of the lumbar spine may be performed for complete assessment. IMPRESSION: No fracture or subluxation SL: [id number] 05/03/2017 - - Read by: Cassi Lockhart MD Dictated Date/time: 05/03/17 23:06 Electronically Signed by: Cassi Lockhart MD 05/03/17 23:07 FINAL REPORT [facility] URINE AND STOOL UA Mucus Few /LPF None Seen /LPF 10/08/2016 [facility] URINE AND STOOL UA Urobilinogen <=1.0 mg/dL 0.1 - 1.0 10/08/2016 [facility] URINE AND STOOL UA Sq Epi None Seen 10/08/2016 [facility] URINE AND STOOL UA Leuk Est Negative (10/08/16 8:15 AM) Negative 10/08/2016 [facility] URINE AND STOOL UA WBC 1 /HPF 0 - 5 10/08/2016 [facility] URINE AND STOOL UA RBC 2 /HPF 0 - 2 10/08/2016 [facility] URINE AND STOOL UA Glucose Negative mg/dL Negative mg/dL 10/08/2016 [facility] URINE AND STOOL UA Ketones Negative mg/dL Negative mg/dL 10/08/2016 [facility] URINE AND STOOL UA Bili Negative *NA* (10/08/16 8:15 AM) Negative 10/08/2016 [facility] URINE AND STOOL UA Nitrite Negative (10/08/16 8:15 AM) Negative 10/08/2016 [facility] URINE AND STOOL UA Blood Negative (10/08/16 8:15 AM) Negative 10/08/2016 [facility] URINE AND STOOL UA Spec Grav 1.018 <=1.030 10/08/2016 [facility] URINE AND STOOL UA Turbidity Clear (10/08/16 8:15 AM) Clear 10/08/2016 [facility] URINE AND STOOL UA Color Yellow *NA* (10/08/16 8:15 AM) Yellow 10/08/2016 [facility] URINE AND STOOL UA Protein 100 mg/dL Negative mg/dL 10/08/2016 [facility] URINE AND STOOL UA pH 6.0 5.0 - 8.0 10/08/2016 [facility] CARDIAC ENZYMES Troponin-I null 0.00 - 0.40 10/08/2016 [facility] CARDIAC ENZYMES CK MB null 0.5 - 3.6 10/08/2016 [facility] CARDIAC ENZYMES Total CK 140 unit/L 12 - 191 10/08/2016 [facility] CARDIAC ENZYMES CK MB Index null 0.0 - 2.5 10/08/2016 [facility] CHEM PANEL eGFR 55 mL/min/1.73m2 10/08/2016 Result Comment: The eGFR is calculated using the CKD-EPI formula. In most young, healthy individuals the eGFR will be >90 mL/min/1.73m2. The eGFR declines with age. An eGFR of 60-89 may be normal in some populations, particularly the elderly, for whom the CKD-EPI formula has not been extensively validated. Use of the eGFR is not recommended in the following populations: Individuals with unstable creatinine concentrations, including patients and those with serious co-morbid conditions. Patients with extremes in muscle mass or diet. The data above are obtained from the National Kidney Disease Education Program (NKDEP) which additionally recommends that when the eGFR is used in patients with extremes of body mass index for purposes of drug dosing, the eGFR should be multiplied by the estimated BMI. [facility] CHEM PANEL Alk Phos 81 unit/L 39 - 136 10/08/2016 [facility] CHEM PANEL AST 24 unit/L 0 - 37 10/08/2016 [facility] CHEM PANEL A/G Ratio 0.7 0.7 - 1.6 10/08/2016 [facility] CHEM PANEL Bili Total 0.6 mg/dL 0.2 - 1.3 10/08/2016 [facility] CHEM PANEL AGAP 12.3 meq/L 10.0 - 20.0 10/08/2016 [facility] CHEM PANEL Globulin 4.4 g/dL 2.7 - 4.2 10/08/2016 [facility] CHEM PANEL B/C Ratio 12 6 - 25 10/08/2016 [facility] CHEM PANEL Calcium Lvl 8.1 mg/dL 8.5 - 10.5 10/08/2016 [facility] CHEM PANEL Total Protein 7.6 g/dL 6.4 - 8.4 10/08/2016 [facility] CHEM PANEL CO2 31 meq/L 24 - 32 10/08/2016 [facility] CHEM PANEL Chloride Lvl 95 meq/L 95 - 109 10/08/2016 [facility] CHEM PANEL Albumin Lvl 3.2 g/dL 3.5 - 5.0 10/08/2016 [facility] CHEM PANEL ALT 32 unit/L 0 - 65 10/08/2016 [facility] CHEM PANEL Sodium Lvl 135 meq/L 135 - 145 10/08/2016 [facility] CHEM PANEL Creatinine Lvl 1.40 mg/dL 0.50 - 1.40 10/08/2016 [facility] CHEM PANEL Potassium Lvl 3.3 meq/L 3.5 - 5.1 10/08/2016 [facility] CHEM PANEL Glucose Lvl 187 mg/dL 70 - 99 10/08/2016 [facility] CHEM PANEL BUN 17 mg/dL 7 - 22 10/08/2016 [facility] HEMATOLOGY INR 1.17 0.85 - 1.17 10/08/2016 [facility] HEMATOLOGY PT 15.1 s 12.0 - 14.7 10/08/2016 [facility] HEMATOLOGY PTT 39.8 s 22.9 - 35.8 10/08/2016 [facility] HEMATOLOGY Platelet 157 K/CMM 133 - 450 10/08/2016 [facility] MPV 8.0 fL 7.4 - 10.4 10/08/2016 [facility] RDW 13.3 % 11.5 - 14.5 10/08/2016 [facility] MCHC 35.0 g/dL 32.0 - 36.0 10/08/2016 [facility] MCH 30.7 pg 27.0 - 31.0 10/08/2016 [facility] Hct 38.8 % 42.0 - 54.0 10/08/2016 [facility] HEMATOLOGY MCV 87.8 fL 80.0 - 94.0 10/08/2016 [facility] Hgb 13.6 g/dL 14.0 - 18.0 10/08/2016 [facility] RBC 4.42 M/CMM 4.70 - 6.10 10/08/2016 [facility] WBC 8.9 K/CMM 3.7 - 10.4 10/08/2016 [facility] HEMATOLOGY Basophils # 0.1 K/CMM 0.0 - 0.2 10/08/2016 [facility] HEMATOLOGY Lymphocytes # 0.6 K/CMM 1.0 - 5.5 10/08/2016 [facility] HEMATOLOGY Monocytes # 0.8 K/CMM 0.0 - 0.8 10/08/2016 [facility] HEMATOLOGY Segs-Bands # 7.4 K/CMM 1.5 - 8.1 10/08/2016 [facility] Monocytes 9.4 % 2.0 - 12.0 10/08/2016 [facility] HEMATOLOGY Eosinophils 0.1 % 0.0 - 4.0 10/08/2016 [facility] HEMATOLOGY Basophils 0.6 % 0.0 - 1.0 10/08/2016 [facility] HEMATOLOGY Lymphocytes 7.0 % 20.0 - 40.0 10/08/2016 [facility] HEMATOLOGY Segs 82.9 % 45.0 - 75.0 10/08/2016 [facility] RAPID Grp A Strep Scr Negative (10/08/16 7:30 AM) Negative 10/08/2016 [facility] VIRAL - SEROLOGY Influ B Negative (10/08/16 7:30 AM) Negative 10/08/2016 [facility] VIRAL - SEROLOGY Influ A Negative (10/08/16 7:30 AM) Negative 10/08/2016 [facility] Abdomen/Pelvis w IV contrast CT Abdomen/Pelvis w IV contrast CT Clinical Indication:56 years Male Abdominal pain, acute/three days of not eating and when he eats - diarrhea; Comparison: None TECHNIQUE: Helical imaging was performed diaphragm through the symphysis with multiplanar reformations obtained. IV CONTRAST: 75 mL Visipaque GI CONTRAST: None DLP: 1279 mGy-cm FINDINGS: Lower thorax: Left basilar atelectasis or scarring. A 5 mm lingular nodule (series 3 image 6) a 4 mm right middle lobe nodule (series 3 image 7). Hepatobiliary: A 0.9 cm enhancing lesion in hepatic segment 7 (series 2 image 22. A focus of enhancement peripherally in segments 6 (series 2 image 26). Neither of these shows washout on the delayed phase. Hepatic steatosis. Pancreas: No focal mass or ductal dilatation. Spleen: No splenomegaly. Adrenals: No nodules. Kidneys: Punctate nonobstructing right renal calculus versus early excretion of contrast. Mild bilateral perinephric stranding, nonspecific. Pelvic organs: Bladder unremarkable. Prostate mildly enlarged. Peritoneum/Retroperitoneum: No free air or free fluid. Lymph nodes: No lymphadenopathy. Vessels: Moderate atherosclerotic disease in the aorta and common iliac arteries. Bowel: No significant bowel thickening or dilatation. The appendix is visualized and appears unremarkable. Diverticulosis. Bones and soft tissues: No acute osseous abnormality. Small fat-containing bilateral inguinal hernias. IMPRESSION: 1. Punctate nonobstructing right renal calculus versus early excretion of contrast. Mild bilateral perinephric stranding, nonspecific. 2. Hepatic steatosis. Several subcentimeter foci of enhancement, without washout on the delayed phase noted in the liver. These are indeterminate but may be flash filling hemangiomas or foci of vascular shunting. Non-emergent MRI of the abdomen without and with contrast may be of benefit for characterization. 3. Diverticulosis without diverticulitis. 4. Mildly enlarged prostate. 5. Small fat-containing bilateral inguinal hernias. 6. There are several lower lobe nodules which measure up to 5 mm. Recommend a follow- up chest CT without contrast in 6-12 months. SL: [id number] 10/08/2016 - - Read by: Skyler Beck MD Dictated Date/time: 10/08/16 10:49 Electronically Signed by: Skyler Beck MD 10/08/16 10:59 FINAL REPORT [facility] Chest 2 views DX Chest 2 views DX PA and lateral chest: The aorta is mildly tortuous. The cardiomediastinal silhouette, pulmonary vasculature and norah are otherwise within normal limits. There is mild linear scarring or subsegmental atelectasis in the lingula. The lungs and pleural spaces are otherwise clear. There are no significant osseous abnormalities. There is no significant change compared to 02/01/2012. IMPRESSION: No acute radiographic abnormalities in the chest. [id number] 10/08/2016 - - Read by: Skyler Vela MD Dictated Date/time: 10/08/16 07:26 Electronically Signed by: Skyler Vela MD 10/08/16 07:27 FINAL REPORT [facility] CHEM PANEL Glucose Lvl 113 mg/dL 70 - 99 05/09/2014 4Interpretive Data: Adult reference range values reflect the clinical guidelines of the [place] [employer]. [facility] CHEM PANEL BUN 25 mg/dL 7 - 22 05/09/2014 [facility] CHEM PANEL Creatinine Lvl 1.9 mg/dL 0.5 - 1.4 05/09/2014 [facility] CHEM PANEL Sodium Lvl 143 meq/L 135 - 145 05/09/2014 [facility] CHEM PANEL Potassium Lvl 3.2 meq/L 3.5 - 5.1 05/09/2014 [facility] CHEM PANEL CO2 27 meq/L 24 - 32 05/09/2014 [facility] CHEM PANEL AGAP 12.2 meq/L 10.0 - 20.0 05/09/2014 [facility] CHEM PANEL Calcium Lvl 8.5 mg/dL 8.5 - 10.5 05/09/2014 [facility] CHEM PANEL Chloride Lvl 107 meq/L 95 - 109 05/09/2014 [facility] CHEM PANEL eGFR 39 mL/min/1.73m2 05/09/2014 2Result Comment: The eGFR is calculated using the CKD-EPI formula. In most young, healthy individuals the eGFR will be >90 mL/min/1.73m2. The eGFR declines with age. An eGFR of 60-89 may be normal in some populations, particularly the elderly, for whom the CKD-EPI formula has not been extensively validated. Use of the eGFR is not recommended in the following populations: Individuals with unstable creatinine concentrations, including patients and those with serious co-morbid conditions. Patients with extremes in muscle mass or diet. The data above are obtained from the National Kidney Disease Education Program (NKDEP) which additionally recommends that when the eGFR is used in patients with extremes of body mass index for purposes of drug dosing, the eGFR should be multiplied by the estimated BMI. [facility] MCH 30.5 pg 27.0 - 31.0 05/09/2014 [facility] MCV 88.1 fL 80.0 - 94.0 05/09/2014 [facility] RBC 4.41 M/CMM 4.70 - 6.10 05/09/2014 [facility] Hct 38.9 % 42.0 - 54.0 05/09/2014 [facility] Hgb 13.4 g/dL 14.0 - 18.0 05/09/2014 [facility] RDW 14.1 % 11.5 - 14.5 05/09/2014 [facility] MPV 7.8 fL 7.4 - 10.4 05/09/2014 [facility] Platelet 206 K/CMM 133 - 450 05/09/2014 [facility] MCHC 34.6 g/dL 32.0 - 36.0 05/09/2014 [facility] WBC 6.2 K/CMM 3.7 - 10.4 05/09/2014 [facility] Segs-Bands # 4.1 K/CMM 1.5 - 8.1 05/09/2014 [facility] Basophils 0.5 % 0.0 - 1.0 05/09/2014 [facility] Lymphocytes 22.8 % 20.0 - 40.0 05/09/2014 [facility] Monocytes # 0.5 K/CMM 0.0 - 0.8 05/09/2014 [facility] Lymphocytes # 1.4 K/CMM 1.0 - 5.5 05/09/2014 [facility] Eosinophils # 0.2 K/CMM 0.0 - 0.5 05/09/2014 [facility] Monocytes 8.2 % 2.0 - 12.0 05/09/2014 [facility] Eosinophils 2.9 % 0.0 - 4.0 05/09/2014 [facility] Segs 65.6 % 45.0 - 75.0 05/09/2014 [facility] Retroperitoneal limited US Retroperitoneal limited US RENAL ULTRASOUND: COMPARISON: No priors TECHNIQUE: Multiple static transabdominal images of the kidneys and bladder are submitted for review. FINDINGS: There is no evidence for space occupying lesions, calculi or hydronephrosis in either kidney. The right kidney measures 12 cm and the left kidney measures 10.3 cm in the sagittal AP and transverse dimensions respectively. Vascular flow to both kidneys is verified on the color Doppler images. Renal cortical volume is well preserved. Presence of urine in a partially distended bladder is documented. IMPRESSION: No significant sonographic abnormality is noted. There is no evidence of hydronephrosis. SL:13 05/09/2014 - - Read by: Kenny Dominguez MD Dictated Date/time: 05/09/14 10:17 Electronically Signed by: Kenny Dominguez MD 05/09/14 10:20 FINAL REPORT [facility] URINE AND STOOL UA Sq Epi None Seen 05/09/2014 [facility] URINE AND STOOL UA Bili Negative *NA* (05/09/14 3:30 AM) Negative 05/09/2014 [facility] URINE AND STOOL UA Bacteria Occasional /HPF None Seen /HPF 05/09/2014 [facility] URINE AND STOOL UA Urobilinogen <=1.0 mg/dL 0.1 - 1.0 05/09/2014 [facility] URINE AND STOOL UA Color Colorless 05/09/2014 [facility] URINE AND STOOL UA pH 7.0 5.0 - 8.0 05/09/2014 [facility] URINE AND STOOL UA Protein Negative mg/dL Negative mg/dL 05/09/2014 [facility] URINE AND STOOL UA Glucose Negative mg/dL Negative mg/dL 05/09/2014 [facility] URINE AND STOOL UA Ketones Negative mg/dL Negative mg/dL 05/09/2014 [facility] URINE AND STOOL UA Blood Negative (05/09/14 3:30 AM) Negative 05/09/2014 [facility] URINE AND STOOL UA Nitrite Negative (05/09/14 3:30 AM) Negative 05/09/2014 [facility] URINE AND STOOL UA Leuk Est Negative (05/09/14 3:30 AM) Negative 05/09/2014 [facility] URINE AND STOOL UA WBC null 0 - 5 05/09/2014 [facility] URINE AND STOOL UA Spec Grav 1.006 <=1.030 05/09/2014 [facility] URINE AND STOOL UA Turbidity Clear (05/09/14 3:30 AM) Clear 05/09/2014 [facility] URINE CHEM U Prot/Creat 0.2 05/09/2014 [facility] URINE CHEM U Protein 9.9 mg/dL 05/09/2014 7Interpretive Data: No established reference ranges. [facility] URINE CHEM U Eos None Seen (05/09/14 3:30 AM) None Seen 05/09/2014 [facility] URINE CHEM U Sodium 98 meq/L 05/09/2014 8Interpretive Data: No established reference ranges. [facility] URINE CHEM U Creatinine 47.5 mg/dL 05/09/2014 6Interpretive Data: No established reference ranges. [facility] CARDIAC ENZYMES CK MB Index 0.7 0.0 - 2.5 05/09/2014 [facility] CARDIAC ENZYMES CK MB 0.9 ng/mL 0.5 - 3.6 05/09/2014 [facility] CARDIAC ENZYMES Troponin-I null 0.00 - 0.40 05/09/2014 [facility] CARDIAC ENZYMES Total CK 136 unit/L 12 - 191 05/09/2014 [facility] CARDIAC ENZYMES CK MB Index 0.5 0.0 - 2.5 05/08/2014 [facility] CARDIAC ENZYMES CK MB 0.8 ng/mL 0.5 - 3.6 05/08/2014 [facility] CARDIAC ENZYMES Troponin-I null 0.00 - 0.40 05/08/2014 [facility] CARDIAC ENZYMES Total CK 151 unit/L 12 - 191 05/08/2014 [facility] SPECIAL CHEMISTRY Hgb A1C 5.9 % <=5.6 % 05/08/2014 [facility] Brain wo contrast MRI Brain wo contrast MRI EXAM: MRI BRAIN WITHOUT CONTRAST DATE: May 08, 2014 06:35:12 PM INDICATION: Weakness TECHNIQUE: Multiplanar, multisequence MR imaging of the brain without intravenous contrast. COMPARISON: CT head dated 05/08/2014. FINDINGS: No restricted diffusion is identified. A few small foci of T2 hyperintensity in the right frontal lobe white matter likely represent minimal chronic microangiopathic ischemic changes. No intra-axial mass or mass effect or abnormal extra-axial collection. The ventricles are normal in size and configuration. The larger intracranial vascular flow-voids are preserved. Small mucous retention cyst is seen in the right maxillary sinus. Mastoid air cells are clear. There is normal bone marrow signal intensity within the calvarium and skullbase. IMPRESSION: 1. No acute intracranial abnormality. 2. Minimal chronic microangiopathic ischemic change. SL: 14 05/08/2014 - - Read by: Awa Brady MD Dictated Date/time: 05/09/14 07:15 Electronically Signed by: Awa Brady MD 05/09/14 07:22 FINAL REPORT [facility] Carotid artery Doppler bilat US Carotid artery Doppler bilat US Carotid artery bilateral Duplex US, May 08, 2014 03:30:00 PM CLINICAL INDICATION: Syncope this morning; Other- See Note to Radiologist COMPARISON: None TECHNIQUE: Grayscale, color Doppler and spectral Doppler imaging of the carotid and vertebral arteries was performed. FINDINGS: Tiny soft plaque formation is visualized in the right carotid bulb. The peak systolic velocities of the right carotid arterial system are has follows: Right CCA 61 cm/sec. Right carotid bulb 33 cm/sec. Right ICA 66 cm/sec. Right ICA/CCA ratio 1.1 No atherosclerotic plaque is visualized in the left carotid arterial system. The peak systolic velocities of the left carotid arterial system are as follows: Left CCA 62 cm/sec. Left carotid bulb 43 cm/sec Left ICA 68 cm/sec. Left ICA/CCA ratio 1.1 Both external carotid arteries and vertebral arteries are patent with antegrade flow. IMPRESSION: Right carotid bulb tiny soft plaque formation, but without hemodynamically significant stenosis. Any reported ICA stenoses by grayscale criteria reference the internal distal carotid diameter as the denominator for stenosis measurement, utilizing consensus panel criteria. Reference: Radiology. 2003 [id number]. Carotid Artery Stenosis: Valente-scale and Doppler US diagnosis- Society of Radiologists in Ultrasound Consensus Conference. William EG, Williams CB, Vero GL, et. al. SL: 14 05/08/2014 - - Read by: Priscilla Hampton MD Dictated Date/time: 05/08/14 16:06 Electronically Signed by: Priscilla Hampton MD 05/08/14 16:08 FINAL REPORT [facility] LIPIDS VLDL 66 05/08/2014 [facility] LIPIDS CHD Risk 5.03 4.00 - 7.30 05/08/2014 [facility] LIPIDS LDL (Calculated) 51 mg/dL <=99 mg/dL 05/08/2014 [facility] LIPIDS Chol 146 mg/dL <=199 mg/dL 05/08/2014 [facility] LIPIDS Trig 332 mg/dL <=149 mg/dL 05/08/2014 [facility] LIPIDS HDL 29 mg/dL >=61 mg/dL 05/08/2014 [facility] CARDIAC ENZYMES CK MB Index 0.6 0.0 - 2.5 05/08/2014 [facility] CARDIAC ENZYMES Troponin-I null 0.00 - 0.40 05/08/2014 [facility] CARDIAC ENZYMES CK MB 1.2 ng/mL 0.5 - 3.6 05/08/2014 [facility] CARDIAC ENZYMES Total CK 196 unit/L 12 - 191 05/08/2014 [facility] CHEM PANEL B/C Ratio 9 6 - 25 05/08/2014 [facility] CHEM PANEL Calcium Lvl 9.0 mg/dL 8.5 - 10.5 05/08/2014 [facility] CHEM PANEL AGAP 12.0 meq/L 10.0 - 20.0 05/08/2014 [facility] CHEM PANEL CO2 29 meq/L 24 - 32 05/08/2014 [facility] CHEM PANEL Potassium Lvl 3.0 meq/L 3.5 - 5.1 05/08/2014 1Result Comment: Critical Result(s) called to Nabil Rodriguez at 05/08/2014 11:48 by PEYTON. Read back OK. [facility] CHEM PANEL Chloride Lvl 103 meq/L 95 - 109 05/08/2014 [facility] CHEM PANEL Creatinine Lvl 2.9 mg/dL 0.5 - 1.4 05/08/2014 [facility] CHEM PANEL Sodium Lvl 141 meq/L 135 - 145 05/08/2014 [facility] CHEM PANEL BUN 27 mg/dL 7 - 22 05/08/2014 [facility] CHEM PANEL Glucose Lvl 127 mg/dL 70 - 99 05/08/2014 5Interpretive Data: Adult reference range values reflect the clinical guidelines of the [place] [employer]. [facility] CHEM PANEL eGFR 23 mL/min/1.73m2 05/08/2014 3Result Comment: The eGFR is calculated using the CKD-EPI formula. In most young, healthy individuals the eGFR will be >90 mL/min/1.73m2. The eGFR declines with age. An eGFR of 60-89 may be normal in some populations, particularly the elderly, for whom the CKD-EPI formula has not been extensively validated. Use of the eGFR is not recommended in the following populations: Individuals with unstable creatinine concentrations, including patients and those with serious co-morbid conditions. Patients with extremes in muscle mass or diet. The data above are obtained from the National Kidney Disease Education Program (NKDEP) which additionally recommends that when the eGFR is used in patients with extremes of body mass index for purposes of drug dosing, the eGFR should be multiplied by the estimated BMI. [facility] CHEM PANEL Bili Total 0.9 mg/dL 0.2 - 1.3 05/08/2014 [facility] CHEM PANEL Alk Phos 77 unit/L 39 - 136 05/08/2014 [facility] CHEM PANEL AST 23 unit/L 0 - 37 05/08/2014 [facility] CHEM PANEL ALT 38 unit/L 0 - 65 05/08/2014 [facility] CHEM PANEL A/G Ratio 0.9 0.7 - 1.6 05/08/2014 [facility] CHEM PANEL Globulin 4.0 g/dL 2.0 - 4.0 05/08/2014 [facility] CHEM PANEL Albumin Lvl 3.7 g/dL 3.5 - 5.0 05/08/2014 [facility] CHEM PANEL Total Protein 7.7 g/dL 6.4 - 8.4 05/08/2014 [facility] CHEM PANEL Magnesium Lvl 2.0 mg/dL 1.8 - 2.4 05/08/2014 [facility] HEMATOLOGY MCV 88.9 fL 80.0 - 94.0 05/08/2014 [facility] Hgb 14.1 g/dL 14.0 - 18.0 05/08/2014 [facility] MCHC 34.1 g/dL 32.0 - 36.0 05/08/2014 [facility] MCH 30.3 pg 27.0 - 31.0 05/08/2014 [facility] Hct 41.4 % 42.0 - 54.0 05/08/2014 [facility] MPV 7.9 fL 7.4 - 10.4 05/08/2014 [facility] Platelet 204 K/CMM 133 - 450 05/08/2014 [facility] RDW 14.4 % 11.5 - 14.5 05/08/2014 [facility] RBC 4.66 M/CMM 4.70 - 6.10 05/08/2014 [facility] WBC 7.5 K/CMM 3.7 - 10.4 05/08/2014 [facility] Basophils 0.5 % 0.0 - 1.0 05/08/2014 [facility] Lymphocytes 20.8 % 20.0 - 40.0 05/08/2014 [facility] Eosinophils 2.1 % 0.0 - 4.0 05/08/2014 [facility] HEMATOLOGY Segs-Bands # 5.1 K/CMM 1.5 - 8.1 05/08/2014 [facility] HEMATOLOGY Monocytes 8.8 % 2.0 - 12.0 05/08/2014 [facility] HEMATOLOGY Monocytes # 0.7 K/CMM 0.0 - 0.8 05/08/2014 [facility] HEMATOLOGY Eosinophils # 0.2 K/CMM 0.0 - 0.5 05/08/2014 [facility] HEMATOLOGY Lymphocytes # 1.6 K/CMM 1.0 - 5.5 05/08/2014 [facility] HEMATOLOGY Segs 67.8 % 45.0 - 75.0 05/08/2014 [facility] HEMATOLOGY PTT 39.4 s 22.9 - 35.8 05/08/2014 10Interpretive Data: Heparin Therapeutic Range: 57 - 92 Seconds [facility] HEMATOLOGY PT 13.5 s 12.0 - 14.7 05/08/2014 [facility] HEMATOLOGY INR 1.04 0.85 - 1.17 05/08/2014 9Interpretive Data: RECOMMENDED RANGES FOR PROTIME INR: 2.0-3.0 for most medical and surgical thromboembolic states. 2.5-3.5 for artificial heart valves and recurrent embolism. INR SHOULD BE USED ONLY FOR PATIENTS ON STABLE ANTICOAGULANT THERAPY. [facility] IMMUNOLOGY CDC HIV 4th GEN Negative (05/08/14 10:15 AM) Negative 05/08/2014 [facility] LIPIDS LDL (Calculated) 53 mg/dL <=99 mg/dL 05/08/2014 [facility] LIPIDS VLDL 67 05/08/2014 [facility] LIPIDS Trig 336 mg/dL <=149 mg/dL 05/08/2014 [facility] LIPIDS CHD Risk 5.14 4.00 - 7.30 05/08/2014 [facility] LIPIDS Chol 149 mg/dL <=199 mg/dL 05/08/2014 [facility] LIPIDS HDL 29 mg/dL >=61 mg/dL 05/08/2014 [facility] THYROID PANEL TSH 2.470 uIU/mL 0.360 - 3.740 05/08/2014 [facility] Vital Signs Vital Sign Value Date Comments Source Heart Rate 57 08/19/2017 [facility] Temperature Oral (F) 97.8 F 08/19/2017 [facility] Respitory Rate 14 08/19/2017 [facility] Weight 71.023 08/19/2017 [facility] Height 162.56 cm 08/19/2017 [facility] Systolic (mm Hg) 156 08/19/2017 [facility] Diastolic (mm Hg) 93 08/19/2017 [facility] BMI Calculated 26.88 08/19/2017 [facility] Height 162.56 cm 08/11/2017 [facility] Weight 72.273 08/11/2017 [facility] BMI Calculated 27.35 08/11/2017 [facility] Systolic (mm Hg) 147 08/11/2017 [facility] Diastolic (mm Hg) 78 08/11/2017 [facility] Heart Rate 78 08/11/2017 [facility] Systolic (mm Hg) 146 06/22/2017 [facility] Diastolic (mm Hg) 90 06/22/2017 [facility] Respitory Rate 18 06/22/2017 [facility] Heart Rate 52 06/22/2017 [facility] Temperature Oral (F) 98.1 F 06/22/2017 [facility] Systolic (mm Hg) 144 06/22/2017 [facility] Diastolic (mm Hg) 79 06/22/2017 [facility] Heart Rate 60 06/22/2017 [facility] Respitory Rate 18 06/22/2017 [facility] Temperature Oral (F) 98.6 F 06/22/2017 [facility] Heart Rate 76 06/22/2017 [facility] Temperature Oral (F) 97.9 F 06/22/2017 [facility] Respitory Rate 18 06/22/2017 [facility] Systolic (mm Hg) 125 06/22/2017 [facility] Diastolic (mm Hg) 83 06/22/2017 [facility] Weight 71.008 06/19/2017 [facility] BMI Calculated 27.01 06/18/2017 [facility] Weight 71.364 06/18/2017 [facility] Height 162.56 cm 06/18/2017 [facility] Height 160.02 cm 06/18/2017 [facility] BMI Calculated 27.69 06/18/2017 [facility] Weight 70.909 06/18/2017 [facility] BMI Calculated 28.04 05/04/2017 [facility] Weight 74.091 05/04/2017 [facility] Height 162.56 cm 05/04/2017 [facility] Systolic (mm Hg) 170 05/04/2017 [facility] Diastolic (mm Hg) 95 05/04/2017 [facility] Heart Rate 72 05/04/2017 [facility] Respitory Rate 18 05/04/2017 [facility] Temperature Oral (F) 97.9 F 05/04/2017 [facility] Systolic (mm Hg) 106 10/08/2016 [facility] Diastolic (mm Hg) 63 10/08/2016 [facility] Temperature Oral (F) 98.2 F 10/08/2016 [facility] Respitory Rate 20 10/08/2016 [facility] Heart Rate 76 10/08/2016 [facility] Systolic (mm Hg) 117 10/08/2016 [facility] Diastolic (mm Hg) 61 10/08/2016 [facility] Heart Rate 73 10/08/2016 [facility] Respitory Rate 20 10/08/2016 [facility] Temperature Oral (F) 98.2 F 10/08/2016 [facility] Temperature Oral (F) 99.1 F 10/08/2016 [facility] Weight 69.091 10/08/2016 [facility] BMI Calculated 25.35 10/08/2016 [facility] Height 165.1 cm 10/08/2016 [facility] Systolic (mm Hg) 167 10/08/2016 [facility] Diastolic (mm Hg) 97 10/08/2016 [facility] Respitory Rate 20 10/08/2016 [facility] Heart Rate 86 10/08/2016 [facility] Respitory Rate 18 05/09/2014 [facility] Systolic (mm Hg) 156 05/09/2014 [facility] Diastolic (mm Hg) 97 05/09/2014 [facility] Temperature Oral (F) 98.4 F 05/09/2014 [facility] Heart Rate 74 05/09/2014 [facility] Diastolic (mm Hg) 85 05/09/2014 [facility] Respitory Rate 18 05/09/2014 [facility] Heart Rate 70 05/09/2014 [facility] Systolic (mm Hg) 151 05/09/2014 [facility] Temperature Oral (F) 98.5 F 05/09/2014 [facility] Systolic (mm Hg) 142 05/09/2014 [facility] Diastolic (mm Hg) 84 05/09/2014 [facility] Heart Rate 71 05/09/2014 [facility] Respitory Rate 18 05/09/2014 [facility] Temperature Oral (F) 98.1 F 05/09/2014 [facility] Height 162 cm 05/08/2014 [facility] BMI Calculated 25.11 05/08/2014 [facility] Weight 65.909 05/08/2014 [facility] BMI Calculated 24.94 05/08/2014 [facility] Height 162.56 cm 05/08/2014 [facility] Weight 65.909 05/08/2014 [facility] Encounters Location Location Details Encounter Type Encounter Number Reason For Visit Attending Provider ADM Date DC Date Status Source [facility] OBS Observation Patient [id number] Ang Burroughs 05/08/2014 05/09/2014 [facility] Emergency [id number] Megan Gonzales 10/08/2016 10/08/2016 [facility] Outpatient [id number] ZOE LOREDOH 03/12/[address] [facility] Outpatient [id number] [facility] [employer] 05/03/2017 Active [facility] Emergency [id number] Chirag WardFransico 05/04/2017 05/04/2017 [facility] Outpatient [id number] APARNA CAMACHO 05/07/[address] [facility] Outpatient [id number] ZOE LOREDOH 05/10/[address] [facility] Outpatient [id number] ZOE LOREDOH 06/14/2017 Active [facility] Inpatient [id number] Salvador Carpio 06/18/2017 06/22/2017 [facility] Outpatient [id number] APARNA CAMACHO 08/11/2017 Active [facility] [id number] [facility] 08/11/2017 08/12/2017 [facility] Outpatient [id number] KACEY HERNDON 08/19/2017 Active [facility] Primary [facility] Outpatient [id number] Kacey Minor 08/19/2017 08/20/2017 [facility] Outpatient [id number] KACEY HERNDON 09/16/2017 Active [facility] Primary [facility] Ambulatory Pre-Reg [id number] Kacey Minor 09/16/2017 09/16/2017 [facility] Outpatient [id number] ZOE LOREDOH 11/08/2017 Active [facility] Ambulatory Pre-Reg [id number] Zoe Loredoh 11/08/2017 11/08/2017 [facility] Outpatient [id number] KAMI WOODKS 11/12/2017 [facility] Ambulatory Pre-Reg [id number] [facility] 11/12/2017 11/12/2017 Medical Group [facility] Primary Care [facility] Phone Message [phone] 03/15/2018 03/17/2018 [facility] Procedures Procedure Code Date Perfomer Comments Source Colonoscopy [id number] 09/20/2015 [facility] [id number] 09/20/2015 [facility]
--- OUTSIDE RECORDS SUMMARY | 2018-08-04 05:26 | XMS REPORT | Summary of Care ---
Author Author [facility] Organization [facility] Address Unknown Phone Unavailable Encounter [facility]) [id number] Date(s): 10/08/16 - 10/08/16 [facility] [address] [place] [address]- Discharge Diagnosis: Fever Discharge Disposition: Home or Self Care Attending Physician: Megan Gonzales DO Vital Signs 1 2 3 Most recent to oldest [Reference Range]: 165.1 cm (10/08/16 6:36 AM) Height 98.2 DegF (10/08/16 11:34 AM) 98.2 DegF (10/08/16 10:12 AM) 99.1 DegF (10/08/16 7:09 AM) Temperature Oral [96.4-99.1 DegF] 106/63 mmHg (10/08/16 11:34 AM) 167/97 mmHg *HI* (10/08/16 6:36 AM) Blood Pressure [90-140/60-90 mmHg] 117 mmHg (10/08/16 10:12 AM) Systolic Blood Pressure [90-140 mmHg] 61 mmHg (10/08/16 10:12 AM) Diastolic Blood Pressure [60-90 mmHg] 20 BRMIN (10/08/16 11:34 AM) 20 BRMIN (10/08/16 10:12 AM) 20 BRMIN (10/08/16 6:36 AM) Respiratory Rate [14-20 BRMIN] 76 bpm (10/08/16 11:34 AM) 73 bpm (10/08/16 10:12 AM) 86 bpm (10/08/16 6:36 AM) Peripheral Pulse Rate [60-100 bpm] 69.091 kg (10/08/16 6:36 AM) Weight 25.35 m2 (10/08/16 6:36 AM) Body Mass Index Problem List Condition Effective Dates Status Health Status Informant Chest Active pain(Confirmed) HTN - Active Hypertension(Confirm ed) Hyperlipidemia(Confi Resolved rmed) Hypertension(Confirm Resolved ed) Allergies, Adverse Reactions, Alerts Substance Reaction Severity Status nkda Active NKFA Active Medications acetaminophen 650 mg, Route: PO, Drug form: TAB, ONCE, Dosing Weight 69.091, kg, Priority: STA T, Start date: 10/08/16 6:52:00 [employer], Stop date: 10/08/16 6:52:00 [employer] Start Date: 10/08/16 Stop Date: 10/08/16 Status: Completed ondansetron 4 mg, Route: IVP, ONCE, Dosing Weight 69.091, kg, Priority: STAT, Start date: 6:52:00 [employer], Stop date: 10/08/16 6:52:00 [employer] Start Date: 10/08/16 Stop Date: 10/08/16 Status: Completed Saline Flush 0.9% 10 mL, Route: IVP, Drug Form: INJ, Dosing Weight 69.091, kg, PRN, PRN Line Flush , Start date: 10/08/16 6:52:00 [employer], Duration: 30 day, Stop date: 11/07/16 6:51:0 0 [employer] Notes: (Same as: BD Posiflush) Start Date: 10/08/16 Stop Date: 10/08/16 Status: Discontinued Sodium Chloride 0.9% (Bolus) IV 1,000 mL, Infuse Over: 1 hr, Route: IV, ONCE, Priority: STAT, Dosing Weight 69.0 91 kg, Start date: 10/08/16 6:52:00 [employer], Duration: 1 doses or times, Stop date: 10/08/16 6:52:00 [employer] Start Date: 10/08/16 Stop Date: 10/08/16 Status: Completed Results ELECTROLYTES Most recent to 1 oldest [Reference Range]: Sodium Lvl [135-145 135 mEq/L mEq/L] (10/08/16 7:30 AM) Potassium Lvl 3.3 mEq/L [3.5-5.1 mEq/L] *LOW* (10/08/16 7:30 AM) Chloride Lvl [95-109 95 mEq/L mEq/L] (10/08/16 7:30 AM) CO2 [24-32 mEq/L] 31 mEq/L (10/08/16 7:30 AM) AGAP [10.0-20.0 12.3 mEq/L mEq/L] (10/08/16 7:30 AM) CHEM PANEL Most recent to 1 oldest [Reference Range]: Creatinine Lvl 1.40 mg/dL [0.50-1.40 mg/dL] (10/08/16 7:30 AM) eGFR 55 mL/min/1.73m2 1 *NA* (10/08/16 7:30 AM) BUN [7-22 mg/dL] 17 mg/dL (10/08/16 7:30 AM) B/C Ratio [6-25] 12 (10/08/16 7:30 AM) Glucose Lvl [70-99 187 mg/dL mg/dL] *HI* (10/08/16 7:30 AM) Total Protein 7.6 g/dL [6.4-8.4 g/dL] (10/08/16 7:30 AM) Albumin Lvl [3.5-5.0 3.2 g/dL g/dL] *LOW* (10/08/16 7:30 AM) Globulin [2.7-4.2 4.4 g/dL g/dL] *HI* (10/08/16 7:30 AM) A/G Ratio [0.7-1.6] 0.7 (10/08/16 7:30 AM) Calcium Lvl 8.1 mg/dL [8.5-10.5 mg/dL] *LOW* (10/08/16 7:30 AM) ALT [0-65 unit/L] 32 unit/L (10/08/16 7:30 AM) AST [0-37 unit/L] 24 unit/L (10/08/16 7:30 AM) Alk Phos [39-136 81 unit/L unit/L] (10/08/16 7:30 AM) Bili Total [0.2-1.3 0.6 mg/dL mg/dL] (10/08/16 7:30 AM) 1Result Comment: The eGFR is calculated using the [...] from the National Kid[employer] Disease Education Program ( NKDEP) which additionally recommends that when the eGFR is used in patients with extremes of body mass index for purposes of drug dosing, the eGFR should be mul tiplied by the estimated BMI. CARDIAC ENZYMES Most recent to 1 oldest [Reference Range]: Total CK [12-191 140 unit/L unit/L] (10/08/16 7:30 AM) CK MB [0.5-3.6 <0.5 ng/mL ng/mL] (10/08/16 7:30 AM) CK MB Index <0.4 [0.0-2.5] (10/08/16 7:30 AM) Troponin-I <0.02 ng/mL [0.00-0.40 ng/mL] (10/08/16 7:30 AM) URINE AND STOOL Most recent to 1 oldest [Reference Range]: UA Turbidity [Clear] Clear (10/08/16 8:15 AM) UA Color [Yellow] Yellow *NA* (10/08/16 8:15 AM) UA pH [5.0-8.0] 6.0 (10/08/16 8:15 AM) UA Spec Grav 1.018 [<=1.030] (10/08/16 8:15 AM) UA Glucose [Negative Negative mg/dL mg/dL] *NA* (10/08/16 8:15 AM) UA Blood [Negative] Negative (10/08/16 8:15 AM) UA Ketones [Negative Negative mg/dL mg/dL] *NA* (10/08/16 8:15 AM) UA Protein [Negative 100 mg/dL mg/dL] *ABN* (10/08/16 8:15 AM) UA Urobilinogen <=1.0 mg/dL [0.1-1.0 mg/dL] *NA* (10/08/16 8:15 AM) UA Bili [Negative] Negative *NA* (10/08/16 8:15 AM) UA Leuk Est Negative [Negative] (10/08/16 8:15 AM) UA Nitrite Negative [Negative] (10/08/16 8:15 AM) UA WBC [0-5 /HPF] 1 /HPF (10/08/16 8:15 AM) UA RBC [0-2 /HPF] 2 /HPF (10/08/16 8:15 AM) UA Sq Epi None Seen *NA* (10/08/16 8:15 AM) UA Mucus [None Seen Few /LPF /LPF] *NA* (10/08/16 8:15 AM) HEMATOLOGY Most recent to 1 oldest [Reference Range]: WBC [3.7-10.4 K/CMM] 8.9 K/CMM (10/08/16 7:30 AM) RBC [4.70-6.10 4.42 M/CMM M/CMM] *LOW* (10/08/16 7:30 AM) Hgb [14.0-18.0 g/dL] 13.6 g/dL *LOW* (10/08/16 7:30 AM) Hct [42.0-54.0 %] 38.8 % *LOW* (10/08/16 7:30 AM) MCV [80.0-94.0 fL] 87.8 fL (10/08/16 7:30 AM) MCH [27.0-31.0 pg] 30.7 pg (10/08/16 7:30 AM) MCHC [32.0-36.0 35.0 g/dL g/dL] (10/08/16 7:30 AM) RDW [11.5-14.5 %] 13.3 % (10/08/16 7:30 AM) Platelet [133-450 157 K/CMM K/CMM] (10/08/16 7:30 AM) MPV [7.4-10.4 fL] 8.0 fL (10/08/16 7:30 AM) Segs [45.0-75.0 %] 82.9 % *HI* (10/08/16 7:30 AM) Lymphocytes 7.0 % [20.0-40.0 %] *LOW* (10/08/16 7:30 AM) Monocytes [2.0-12.0 9.4 % %] (10/08/16 7:30 AM) Eosinophils [0.0-4.0 0.1 % %] (10/08/16 7:30 AM) Basophils [0.0-1.0 0.6 % %] (10/08/16 7:30 AM) Segs-Bands # 7.4 K/CMM [1.5-8.1 K/CMM] (10/08/16 7:30 AM) Lymphocytes # 0.6 K/CMM [1.0-5.5 K/CMM] *LOW* (10/08/16 7:30 AM) Monocytes # [0.0-0.8 0.8 K/CMM K/CMM] (10/08/16 7:30 AM) Basophils # [0.0-0.2 0.1 K/CMM K/CMM] (10/08/16 7:30 AM) PT [12.0-14.7 15.1 seconds seconds] *HI* (10/08/16 7:30 AM) INR [0.85-1.17] 1.17 (10/08/16 7:30 AM) PTT [22.9-35.8 39.8 seconds seconds] *HI* (10/08/16 7:30 AM) RAPID Most recent to 1 oldest [Reference Range]: Grp A Strep Scr Negative [Negative] (10/08/16 7:30 AM) VIRAL - SEROLOGY Most recent to 1 oldest [Reference Range]: Influ A [Negative] Negative (10/08/16 7:30 AM) Influ B [Negative] Negative (10/08/16 7:30 AM) Immunizations No data available for this section Procedures No data available for this section Social History Social History Type Response Alcohol Current, Type Beer. Frequency: 1-2 times per week. Smoking Status Never smoker; Exposure to Tobacco Smoke None; Cigarette Smoking Last 365 Days No; Reg Smoking Cessation Counseling No Assessment and Plan No data available for this section
--- OUTSIDE RECORDS SUMMARY | 2018-08-04 05:26 | XMS REPORT | Summary of Care ---
Author Organization Unknown Address Unknown Phone Unavailable Encounter [facility]ing(PIERO) [id number] Date(s): 05/08/14 - 05/09/14 [facility] [id number] [place], [place] [id number] [place] [address] Discharge Disposition: Home Physician Attending: Ang Burroughs DO Reason for Visit TIA/HTN.RENAL INSUFF Vital Signs 1 2 3 Most recent to oldest [Reference Range]: 162 cm (05/08/14 3:29 PM) 162.56 cm (05/08/14 10:04 AM) Height 98.4 DegF (05/09/14 11:22 AM) 98.5 DegF (05/09/14 7:59 AM) 98.1 DegF (05/09/14 4:44 AM) Temperature Oral [96.4-99.1 DegF] 156 mmHg *HI* (05/09/14 11:22 AM) 151 mmHg *HI* (05/09/14 7:59 AM) 142 mmHg *HI* (05/09/14 4:44 AM) Systolic Blood Pressure [90-140 mmHg] 97 mmHg *HI* (05/09/14 11:22 AM) 85 mmHg (05/09/14 7:59 AM) 84 mmHg (05/09/14 4:44 AM) Diastolic Blood Pressure [60-90 mmHg] 18 BRMIN (05/09/14 11:22 AM) 18 BRMIN (05/09/14 7:59 AM) 18 BRMIN (05/09/14 4:44 AM) Respiratory Rate [14-20 BRMIN] 74 bpm (05/09/14 11:22 AM) 70 bpm (05/09/14 7:59 AM) 71 bpm (05/09/14 4:44 AM) Peripheral Pulse Rate [60-100 bpm] 65.909 kg (05/08/14 3:29 PM) 65.909 kg (05/08/14 10:04 AM) Weight 25.11 m2 (05/08/14 3:29 PM) 24.94 m2 (05/08/14 10:04 AM) Body Mass Index Problem List Condition Effective Dates Status Health Status Informant Chest Active pain(Confirmed) HTN - Active Hypertension(Confirm ed) Hypertension(Confirm Resolved ed) Allergies, Adverse Reactions, Alerts Substance Reaction Severity Status nkda Active NKFA Active Medications acetaminophen 650 mg, 20.3 mL, Route: PO, Drug form: LIQ, Q4H, Dosing Weight 65.909, kg, PRN P ain 1-3/Temp > 100.4 F, Start date: 05/08/14 15:22:00, Duration: 30 day, Stop date: 06/07/14 15:21:00 Notes: Max zgjdmpbfxrdbo=7504yi/day (4 gm/day). (Same as: Tylenol) Start Date: 05/08/14 Stop Date: 05/09/14 Status: Discontinued amLODIPine 5 mg oral tablet 5 mg=1 tab, PO, Daily, # 30 tab, 0 Refill(s) Start Date: 05/09/14 Status: Ordered aspirin 0 Refill(s) Start Date: 05/08/14 Status: Ordered aspirin 325 mg tablet 325 mg, 1 tab, Route: PO, Drug form: TAB, Daily, Dosing Weight 65.909, kg, Prior ity: STAT, Start date: 05/08/14 15:22:00, Duration: 30 day, Stop date: 06/07/14 9:00:00 Notes: Take with food. Start Date: 05/08/14 Stop Date: 05/08/14 Status: Discontinued aspirin 325 mg tablet 325 mg, Route: PO, Drug form: TAB, ONCE, Dosing Weight 65.909, kg, dysphagia scr een first, Priority: STAT, Start date: 05/08/14 14:03:00, Stop date: 05/08/14 14 :03:00 Start Date: 05/08/14 Stop Date: 05/08/14 Status: Completed aspirin 325 mg tablet 325 mg, 1 tab, Route: PO, Drug form: TAB, ONCE, Dosing Weight 65.909, kg, dyspha donnie screen first, Priority: STAT, Start date: 05/08/14 11:14:00, Stop date: 04/20 06/03 11:14:00 Notes: Take with food. Start Date: 05/08/14 Stop Date: 05/08/14 Status: Completed aspirin 325 mg tablet, enteric coated 325 mg, 1 tab, Route: PO, Drug form: ECTAB, Daily, Dosing Weight 65.909, kg, Sta rt date: 05/09/14 9:00:00, Duration: 30 day, Stop date: 06/07/14 9:00:00 Notes: (Do Not Crush) Do not crush or chew. Start Date: 05/09/14 Stop Date: 05/09/14 Status: Discontinued clopidogrel 75 mg, 1 tab, Route: PO, Drug form: TAB, Daily, Dosing Weight 65.909, kg, Start date: 05/09/14 9:00:00, Duration: 30 day, Stop date: 06/07/14 9:00:00 Notes: (Same As: Plavix) Start Date: 05/09/14 Stop Date: 05/09/14 Status: Discontinued docusate 100 mg, 1 cap, Route: PO, Drug form: CAP, BID, Dosing Weight 65.909, kg, PRN Con stipation, Start date: 05/08/14 15:22:00, Duration: 30 day, Stop date: 06/07/14 15:21:00 Notes: (Same as: Colace) (Do Not Crush) Start Date: 05/08/14 Stop Date: 05/09/14 Status: Discontinued hydrALAZINE 10 mg, 0.5 mL, Route: IV, Drug form: INJ, Q6H, Dosing Weight 65.909, kg, PRN Jennifer vated BP, Start date: 05/08/14 16:17:00, Duration: 30 day, Stop date: 06/07/14 1 6:16:00 Notes: (Same as: Apresoline)Push over 5 minutes Start Date: 05/08/14 Stop Date: 05/09/14 Status: Discontinued hydrochlorothiazide-losartan 12.5 mg-100 mg oral tablet 0 Refill(s) Start Date: 05/08/14 Stop Date: 05/09/14 Status: Discontinued Lipitor 10 mg, 1 tab, Route: PO, Drug form: TAB, QPM, Dosing Weight 65.909, kg, Start da te: 05/09/14 17:00:00, Duration: 30 day, Stop date: 06/07/14 17:00:00 Notes: (Same As: Lipitor) Start Date: 05/09/14 Stop Date: 05/09/14 Status: Canceled [place] 5/325 oral tablet 1 tab, Route: PO, Drug Form: TAB, Dosing Weight 65.909, kg, Q6H, PRN Pain Score 1-3, Start date: 05/08/14 16:19:00, Duration: 30 day, Stop date: 06/07/14 16:18: 00 Notes: (Same as: [place] 325/5) Do not exceed 4gm/day of acetaminophen. Start Date: 05/08/14 Stop Date: 05/09/14 Status: Discontinued Norvasc 2.5 mg, 1 tab, Route: PO, Drug form: TAB, BID, Dosing Weight 65.909, kg, Start d ate: 05/08/14 17:00:00, Duration: 30 day, Stop date: 06/07/14 9:00:00 Notes: (Same as: Norvasc) Start Date: 05/08/14 Stop Date: 05/08/14 Status: Canceled Norvasc 5 mg, 1 tab, Route: PO, Drug form: TAB, Daily, Dosing Weight 65.909, kg, Priorit y: NOW, Start date: 05/08/14 16:24:00, Duration: 30 day, Stop date: 06/07/14 9:0 0:00 Notes: (Same as: Norvasc) Start Date: 05/08/14 Stop Date: 05/09/14 Status: Discontinued ondansetron 4 mg, 2 mL, Route: IVP, Drug form: INJ, Q8H, Dosing Weight 65.909, kg, PRN Nause a & Vomiting, Start date: 05/08/14 15:22:00, Duration: 30 day, Stop date: 06/07/14 15:21:00 Notes: (Same as: Zofran) Start Date: 05/08/14 Stop Date: 05/09/14 Status: Discontinued potassium chloride 40 mEq, 2 tab, Route: PO, Drug form: ERTAB, ONCE, Dosing Weight 65.909, kg, Prio rity: STAT, Start date: 05/08/14 13:35:00, Stop date: 05/08/14 13:35:00 Notes: (Same as: K-Dur 20)"Do Not Crush" With food and full glass of water Start Date: 05/08/14 Stop Date: 05/08/14 Status: Completed potassium chloride 40 mEq, 30 mL, Route: PO, Drug form: LIQ, ONCE, Dosing Weight 65.909, kg, Start date: 05/09/14 10:57:00, Stop date: 05/09/14 10:57:00 Notes: (Same as: Potassium Chloride) Start Date: 05/09/14 Stop Date: 05/09/14 Status: Completed Saline Flush 0.9% 5 ml, Route: IVP, Drug Form: INJ, Dosing Weight 65.909, kg, PRN, PRN Line Flush, Start date: 05/08/14 15:22:00, Duration: 30 day, Stop date: 06/07/14 15:21:00 Notes: (Same as: BD Posiflush) Start Date: 05/08/14 Stop Date: 05/09/14 Status: Discontinued Sodium Chloride 0.9% IV 1,000 mL 1,000 mL, Rate: 125 ml/hr, Infuse over: 8 hr, Route: IV, Dosing Weight 65.909 kg , Total Volume: 1,000, Start date: 05/08/14 15:22:00, Duration: 30 day, Stop marixa e: 06/07/14 15:21:00 Start Date: 05/08/14 Stop Date: 05/09/14 Status: Discontinued Results ELECTROLYTES 1 2 3 Most recent to oldest [Reference Range]: 143 mEq/L (05/09/14 5:04 AM) 141 mEq/L (05/08/14 10:15 AM) Sodium Lvl [135-145 mEq/L] 3.2 mEq/L *LOW* (05/09/14 5:04 AM) 3.0 mEq/L 1 *CRIT* (05/08/14 10:15 AM) Potassium Lvl [3.5-5.1 mEq/L] 107 mEq/L (05/09/14 5:04 AM) 103 mEq/L (05/08/14 10:15 AM) Chloride Lvl [95-109 mEq/L] 27 mEq/L (05/09/14 5:04 AM) 29 mEq/L (05/08/14 10:15 AM) CO2 [24-32 mEq/L] 12.2 mEq/L (05/09/14 5:04 AM) 12.0 mEq/L (05/08/14 10:15 AM) AGAP [10.0-20.0 mEq/L] 1Result Comment: Critical Result(s) called to Nabil Rodriguez at 05/08/2014 11:48 by PEYTON. Read back OK. CHEM PANEL 1 2 3 Most recent to oldest [Reference Range]: 1.9 mg/dL *HI* (05/09/14 5:04 AM) 2.9 mg/dL *HI* (05/08/14 10:15 AM) Creatinine Lvl [0.5-1.4 mg/dL] 39 mL/min/1.73m2 2 *NA* (05/09/14 5:04 AM) 23 mL/min/1.73m2 3 *NA* (05/08/14 10:15 AM) eGFR 25 mg/dL *HI* (05/09/14 5:04 AM) 27 mg/dL *HI* (05/08/14 10:15 AM) BUN [7-22 mg/dL] 9 (05/08/14 10:15 AM) B/C Ratio [6-25] 113 mg/dL 4 *HI* (05/09/14 5:04 AM) 127 mg/dL 5 *HI* (05/08/14 10:15 AM) Glucose Lvl [70-99 mg/dL] 7.7 g/dL (05/08/14 10:15 AM) Total Protein [6.4-8.4 g/dL] 3.7 g/dL (05/08/14 10:15 AM) Albumin Lvl [3.5-5.0 g/dL] 4.0 g/dL (05/08/14 10:15 AM) Globulin [2.0-4.0 g/dL] 0.9 (05/08/14 10:15 AM) A/G Ratio [0.7-1.6] 8.5 mg/dL (05/09/14 5:04 AM) 9.0 mg/dL (05/08/14 10:15 AM) Calcium Lvl [8.5-10.5 mg/dL] 2.0 mg/dL (05/08/14 10:15 AM) Magnesium Lvl [1.8-2.4 mg/dL] 38 unit/L (05/08/14 10:15 AM) ALT [0-65 unit/L] 23 unit/L (05/08/14 10:15 AM) AST [0-37 unit/L] 77 unit/L (05/08/14 10:15 AM) Alk Phos [39-136 unit/L] 0.9 mg/dL (05/08/14 10:15 AM) Bili Total [0.2-1.3 mg/dL] 2Result Comment: The eGFR is calculated using [...] be mul tiplied by the estimated BMI. 3Result Comment: The eGFR is calculated using [...] be mul tiplied by the estimated BMI. 4Interpretive Data: Adult reference range values reflect the clinical guidelines of the [place] [employer]. 5Interpretive Data: Adult reference range values reflect the clinical guidelines of the [place] [employer]. CARDIAC ENZYMES 1 2 3 Most recent to oldest [Reference Range]: 136 unit/L (05/08/14 11:19 PM) 151 unit/L (05/08/14 4:56 PM) 196 unit/L *HI* (05/08/14 10:15 AM) Total CK [12-191 unit/L] 0.9 ng/mL (05/08/14 11:19 PM) 0.8 ng/mL (05/08/14 4:56 PM) 1.2 ng/mL (05/08/14 10:15 AM) CK MB [0.5-3.6 ng/mL] 0.7 (05/08/14 11:19 PM) 0.5 (05/08/14 4:56 PM) 0.6 (05/08/14 10:15 AM) CK MB Index [0.0-2.5] <0.02 ng/mL (05/08/14 11:19 PM) <0.02 ng/mL (05/08/14 4:56 PM) <0.02 ng/mL (05/08/14 10:15 AM) Troponin-I [0.00-0.40 ng/mL] LIPIDS 1 2 3 Most recent to oldest [Reference Range]: 5.03 (05/08/14 10:15 AM) 5.14 (05/08/14 10:15 AM) CHD Risk [4.00-7.30] 146 mg/dL (05/08/14 10:15 AM) 149 mg/dL (05/08/14 10:15 AM) Chol [<=199 mg/dL] 332 mg/dL *HI* (05/08/14 10:15 AM) 336 mg/dL *HI* (05/08/14 10:15 AM) Trig [<=149 mg/dL] 29 mg/dL *LOW* (05/08/14 10:15 AM) 29 mg/dL *LOW* (05/08/14 10:15 AM) HDL [>=61 mg/dL] 51 mg/dL (05/08/14 10:15 AM) 53 mg/dL (05/08/14 10:15 AM) LDL (Calculated) [<=99 mg/dL] 66 *NA* (05/08/14 10:15 AM) 67 *NA* (05/08/14 10:15 AM) VLDL SPECIAL CHEMISTRY 1 2 3 Most recent to oldest [Reference Range]: 5.9 % *HI* (05/08/14 4:56 PM) Hgb A1C [<=5.6 %] THYROID PANEL 1 2 3 Most recent to oldest [Reference Range]: 2.470 uIU/mL (05/08/14 10:15 AM) TSH [0.360-3.740 uIU/mL] URINE CHEM 1 2 3 Most recent to oldest [Reference Range]: 47.5 mg/dL 6 *NA* (05/09/14 3:30 AM) U Creatinine 9.9 mg/dL 7 *NA* (05/09/14 3:30 AM) U Protein 0.2 *NA* (05/09/14 3:30 AM) U Prot/Creat 98 mEq/L 8 *NA* (05/09/14 3:30 AM) U Sodium None Seen (05/09/14 3:30 AM) U Eos [None Seen] 6Interpretive Data: No established reference ranges. 7Interpretive Data: No established reference ranges. 8Interpretive Data: No established reference ranges. URINE AND STOOL 1 2 3 Most recent to oldest [Reference Range]: Clear (05/09/14 3:30 AM) UA Turbidity [Clear] Colorless *NA* (05/09/14 3:30 AM) UA Color 7.0 (05/09/14 3:30 AM) UA pH [5.0-8.0] 1.006 (05/09/14 3:30 AM) UA Spec Grav [<=1.030] Negative mg/dL *NA* (05/09/14 3:30 AM) UA Glucose [Negative mg/dL] Negative (05/09/14 3:30 AM) UA Blood [Negative] Negative mg/dL *NA* (05/09/14 3:30 AM) UA Ketones [Negative mg/dL] Negative mg/dL (05/09/14 3:30 AM) UA Protein [Negative mg/dL] <=1.0 mg/dL *NA* (05/09/14 3:30 AM) UA Urobilinogen [0.1-1.0 mg/dL] Negative *NA* (05/09/14 3:30 AM) UA Bili [Negative] Negative (05/09/14 3:30 AM) UA Leuk Est [Negative] Negative (05/09/14 3:30 AM) UA Nitrite [Negative] <1 /HPF (05/09/14 3:30 AM) UA WBC [0-5 /HPF] Occasional /HPF *NA* (05/09/14 3:30 AM) UA Bacteria [None Seen /HPF] None Seen *NA* (05/09/14 3:30 AM) UA Sq Epi IMMUNOLOGY 1 2 3 Most recent to oldest [Reference Range]: Negative (05/08/14 10:15 AM) CDC HIV 4th GEN [Negative] HEMATOLOGY 1 2 3 Most recent to oldest [Reference Range]: 6.2 K/CMM (05/09/14 5:04 AM) 7.5 K/CMM (05/08/14 10:15 AM) WBC [3.7-10.4 K/CMM] 4.41 M/CMM *LOW* (05/09/14 5:04 AM) 4.66 M/CMM *LOW* (05/08/14 10:15 AM) RBC [4.70-6.10 M/CMM] 13.4 g/dL *LOW* (05/09/14 5:04 AM) 14.1 g/dL (05/08/14 10:15 AM) Hgb [14.0-18.0 g/dL] 38.9 % *LOW* (05/09/14 5:04 AM) 41.4 % *LOW* (05/08/14 10:15 AM) Hct [42.0-54.0 %] 88.1 fL (05/09/14 5:04 AM) 88.9 fL (05/08/14 10:15 AM) MCV [80.0-94.0 fL] 30.5 pg (05/09/14 5:04 AM) 30.3 pg (05/08/14 10:15 AM) MCH [27.0-31.0 pg] 34.6 g/dL (05/09/14 5:04 AM) 34.1 g/dL (05/08/14 10:15 AM) MCHC [32.0-36.0 g/dL] 14.1 % (05/09/14 5:04 AM) 14.4 % (05/08/14 10:15 AM) RDW [11.5-14.5 %] 206 K/CMM (05/09/14 5:04 AM) 204 K/CMM (05/08/14 10:15 AM) Platelet [133-450 K/CMM] 7.8 fL (05/09/14 5:04 AM) 7.9 fL (05/08/14 10:15 AM) MPV [7.4-10.4 fL] 65.6 % (05/09/14 5:04 AM) 67.8 % (05/08/14 10:15 AM) Segs [45.0-75.0 %] 22.8 % (05/09/14 5:04 AM) 20.8 % (05/08/14 10:15 AM) Lymphocytes [20.0-40.0 %] 8.2 % (05/09/14 5:04 AM) 8.8 % (05/08/14 10:15 AM) Monocytes [2.0-12.0 %] 2.9 % (05/09/14 5:04 AM) 2.1 % (05/08/14 10:15 AM) Eosinophils [0.0-4.0 %] 0.5 % (05/09/14 5:04 AM) 0.5 % (05/08/14 10:15 AM) Basophils [0.0-1.0 %] 4.1 K/CMM (05/09/14 5:04 AM) 5.1 K/CMM (05/08/14 10:15 AM) Segs-Bands # [1.5-8.1 K/CMM] 1.4 K/CMM (05/09/14 5:04 AM) 1.6 K/CMM (05/08/14 10:15 AM) Lymphocytes # [1.0-5.5 K/CMM] 0.5 K/CMM (05/09/14 5:04 AM) 0.7 K/CMM (05/08/14 10:15 AM) Monocytes # [0.0-0.8 K/CMM] 0.2 K/CMM (05/09/14 5:04 AM) 0.2 K/CMM (05/08/14 10:15 AM) Eosinophils # [0.0-0.5 K/CMM] 13.5 seconds (05/08/14 10:15 AM) PT [12.0-14.7 seconds] 1.04 9 (05/08/14 10:15 AM) INR [0.85-1.17] 39.4 seconds 10 *HI* (05/08/14 10:15 AM) PTT [22.9-35.8 seconds] 9Interpretive Data: RECOMMENDED RANGES FOR PROTIME INR: 2.0-3.0 for most medical and surgical thromboembolic states. 2.5-3.5 for artificial heart valves and recurrent embolism. INR SHOULD BE USED ONLY FOR PATIENTS ON STABLE ANTICOAGULANT THERAPY. 10Interpretive Data: Heparin Therapeutic Range: 57 - 92 Seconds Medications Administered During Your Visit No data available for this section Immunizations No data available for this section Social History Social History Type Response Alcohol Use: Current, Type: Beer, Frequency: 1-2 times per week Assessment and Plan Extracted from: Title: Clinical Document Author: Ang Burroughs DO Date: 05/09/14 Progress Daily [facility] Completed: Apr, 11:18 by Ang Burroughs DO RM: [address], [id number], [id number] (: 1960) Attending: Ang Burroughs DOPhone: Service: Internal Medicine Reason for Admission: TIA/HTN.RENAL INSUFF Working DRG: None Documented Code status: Full Code [Ordered]Current diet: Isolation: None Documented Allergies: NKFA, nkda SUBJECTIVE Patient seen and examined. Events noted overnight. Labs/Images reviewed doing better, no other issues OBJECTIVE Labs (Last four charted values) WBC 6.2(MAY 09)7.5(MAY 08) Hgb L 13.4(MAY 09)14.1(MAY 08) Hct L 38.9(MAY 09)L 41.4(MAY 08) Plt 206(MAY 09)204(MAY 08) Na 143(MAY 09)141(MAY 08) K L 3.2(MAY 09)C 3.0(MAY 08) CO2 27(MAY 09)29(MAY 08) Cl 107(MAY 09)103(MAY 08) Cr H 1.9(MAY 09)H 2.9(MAY 08) BUN H 25(MAY 09)H 27(MAY 08) Glucose Random H 113(MAY 09)H 127(MAY 08) Mg 2.0(MAY 08) Ca 8.5(MAY 09)9.0(MAY 08) PT 13.5(MAY 08) INR 1.04(MAY 08) PTT H 39.4(MAY 08) Troponin <0.02(MAY 08)<0.02(MAY 08)<0.02(MAY 08) CK MB 0.9(MAY 08)0.8(MAY 08)1.2(MAY 08) Total CK 136(MAY 08)151(MAY 08)H 196(MAY 08) ASSESSMENT & EXAM Gen: NAD, Alert, Awake HEENT: NC/AT, PERRLA, oral area clear and moist Neck: No LAD, No JVD, trachea midline Chest: CTAB, no c/w/r CV: RRR, S1, S2 GI: +BS, S, NT, ND, No organomegaly Ext: no c/c/e Neuro: AOx3, no gross deficits noted Skin: No notable rashes PLAN & TREATMENT renal function improving neuro seen pt and review of all imaging is negative ok to d.c home will need to . as outpt for lab check DIAGNOSES & PROBLEMS 1. Transient ischemic attack with possible expressive aphasia which has resolved. 2. Accelerated hypertension. 3. Acute renal failure, likely secondary to dehydration versus acute tubular necrosis. 4. Hypokalemia. Ready for Discharge (Yes/No)? Still still necessary (Yes/No): Line still necessary (Yes/No): 24hr Labs 05/09 0504 Glucose Enh627 H BUN25 H Creatinine Lvl1.9 H Sodium Rnz382 Potassium Lvl3.2 L Chloride Xtw585 CO227 AGAP12.2 Calcium Lvl8.5 eGFR39 WBC6.2 RBC4.41 L Hgb13.4 L Hct38.9 L MCV88.1 MCH30.5 MCHC34.6 RDW14.1 Vqrhwybz523 MPV7.8 Segs65.6 Monocytes8.2 Dhuefhybjeh12.8 Eosinophils2.9 Basophils0.5 Segs-Bands #4.1 Lymphocytes #1.4 Monocytes #0.5 Eosinophils #0.2 05/09 0330 U Protein9.9 U Axqors63 U Onamstcicy47.5 U Prot/Creat0.2 U EosNone Seen UA ColorColorless UA TurbidityClear UA Spec Grav1.006 UA pH7.0 UA ProteinNegative UA GlucoseNegative UA KetonesNegative UA BiliNegative UA BloodNegative UA Urobilinogen<=1.0 UA NitriteNegative UA Leuk EstNegative UA WBC<1 UA BacteriaOccasional UA Sq EpiNone Seen 05/08 2319 Total CK136 Troponin-I<0.02 CK MB0.9 CK MB Index0.7 05/08 1656 Hgb A1C5.9 H Total CK151 Troponin-I<0.02 CK MB0.8 CK MB Index0.5 05/08 1015 Ixsd987 Jspq451 H HDL29 L LDL (Calculated)51 VLDL66 CHD Risk5.03 05/08 1015 Total CK196 H Troponin-I<0.02 CK MB1.2 CK MB Index0.6 Sodium Vmk790 Potassium Lvl3.0 C Chloride Lem741 CO229 AGAP12.0 Glucose Lch156 H Creatinine Lvl2.9 H BUN27 H B/C Ratio9 Total Protein7.7 Albumin Lvl3.7 Globulin4.0 A/G Ratio0.9 Calcium Lvl9.0 ALT38 AST23 Alk Phos77 Bili Total0.9 eGFR23 Magnesium Lvl2.0 Bzyz205 Tfjs548 H HDL29 L LDL (Calculated)53 VLDL67 CHD Risk5.14 TSH2.470 VitalsTmp(F)KzvkyHHDDCaF3VZM9 05/09 07:5998.673329/056392 21% 05/09 04:4498.728320/226626--- 05/08 23:5598.461047/707925--- 05/08 20:44----09112/8518------ 05/08 19:4897.733213/1087377--- 24 Hr Tmax: 98.8F (37.11c) at 05/08 14:40Vital Signs are the last 5 in the past 48 hours. DateWt(kg)Wt(lb)Ht(cm)Ht(in)Method 05/08 (initial) 65.91 145.86656.56 64.00Stated I&ORecordInOutBal 04/2024hr Tot 540 0 540 04/1924hr Tot 376 600 -224 Medications (14) Active Scheduled Meds (3): 05/08/14 amLODIPine (Norvasc) 5 mg PO Daily 05/09/14 aspirin (aspirin 325 mg tablet, enteric coated) 325 mg PO Daily 05/09/14 atorvastatin (Lipitor) 10 mg PO QPM Unscheduled Meds: None PRN Meds (6): 05/08/14 acetaminophen-hydrocodone ([place] 5/325 oral tablet) 1 tab PO Q6H 05/08/14 acetaminophen 650 mg PO Q4H 05/08/14 docusate 100 mg PO BID 05/08/14 hydrALAZINE 10 mg IV Q6H 05/08/14 ondansetron 4 mg IVP Q8H 05/08/14 sodium chloride (Saline Flush 0.9%) 5 ml IVP PRN One Time Meds (4): 05/08/14 (Completed) aspirin (aspirin 325 mg tablet) 325 mg PO ONCE 05/08/14 (not done) aspirin (aspirin 325 mg tablet) 325 mg PO ONCE 05/08/14 (Completed) potassium chloride 40 mEq PO ONCE 05/09/14 (Ordered) potassium chloride 40 mEq PO ONCE Continuous Infusions (1): 05/08/14 Sodium Chloride 0.9% IV 1,000 mL 1,000 mL 125 ml/hr
--- OUTSIDE RECORDS SUMMARY | 2018-08-04 05:27 | XMS REPORT | Summary of Care ---
Author Author [facility] Care [facility] Organization [facility] Address Unknown Phone Unavailable Encounter HQ Encntr_alias(FIN) [id number] Date(s): 03/15/18 - 03/16/18 [facility] [address], [address] [place], [place] [id number]- [phone] Vital Signs No data available for this section Problem List Condition Effective Dates Status Health Status Informant Excessive daytime Active sleepiness(Confirmed ) Fatigue(Confirmed) Active HTN - Active Hypertension(Confirm ed) Hyperlipidemia(Confi Active rmed) Hypertension(Confirm Active ed) Hypokalemia(Confirme Active d) Low Active testosterone(Confirm ed) Abnormal liver Active enzymes(Confirmed) Moderate major Active depression(Confirmed ) Depression(Confirmed Resolved ) Obstructive sleep Active apnea(Confirmed) Prediabetes(Confirme Active d) Sleep Active apnea(Confirmed) Allergies, Adverse Reactions, Alerts Substance Reaction Severity Status NKFA Active NKDA Active Medications No data available for this section Results No data available for this section Immunizations Not Given Vaccine Date Status Refusal Reason influenza virus vaccine, inactivated 06/19/17 Not Given Parent Or Guardian Refuses Procedures Procedure Date Related Diagnosis Body Site Status Colonoscopy 2016 Completed Social History Social History Type Response Exercise Exercise duration: 0. 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 Alcohol Current, Type Beer. Frequency: 1-2 times per week. Smoking Status Never smoker; Exposure to Tobacco Smoke None; Cigarette Smoking Last 365 Days No; Reg Smoking Cessation Counseling No entered on: 08/19/17 Assessment and Plan No data available for this section
--- OUTSIDE RECORDS SUMMARY | 2018-08-04 05:27 | XMS REPORT | Summary of Care ---
Author Author [facility] Care [facility] Organization [facility] Address Unknown Phone Unavailable Encounter HQ Encntr_alias(FIN) [id number] Date(s): 11/08/17 - 11/08/17 [facility] [address], [address] [place] [address]- [phone] Attending Physician: Rachel Chand DO Vital Signs No data available for this [...] duration: 0. 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 Alcohol Current, Type Beer. Frequency: 1-2 times per week. Smoking Status Never smoker; Exposure to Tobacco Smoke None; Cigarette Smoking Last 365 Days No; Reg Smoking Cessation Counseling No entered on: 08/19/17 Assessment and Plan No data available for this section
--- OUTSIDE RECORDS SUMMARY | 2018-08-04 05:27 | XMS REPORT | Summary of Care ---
Author Author [facility] Care [facility] Organization [facility] Address Unknown Phone Unavailable Encounter HQ Encntr_alias(FIN) [id number] Date(s): 11/08/17 - 11/08/17 [facility] [address], [address] [place] [address]- [phone] Attending Physician: Rachel Chand DO Vital Signs [...] duration: 0. 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 Alcohol Current, Type Beer. Frequency: 1-2 times per week. Smoking Status Never smoker; Exposure to Tobacco Smoke None; Cigarette Smoking Last 365 Days No; Reg Smoking Cessation Counseling No entered on: 08/19/17 Assessment and Plan No data available for this section
--- OUTSIDE RECORDS SUMMARY | 2018-08-04 05:27 | XMS REPORT | Summary of Care ---
Author Author [facility] Organization [facility] Address Unknown Phone Unavailable Encounter PHILL Flower(FIN) [id number] Date(s): 08/11/17 - 08/11/17 [facility] [address], [address] [place] [address] [phone] Discharge Disposition: Home or Self Care Attending Physician: Tarun Leiva MD Vital Signs Most recent to 1 oldest [Reference Range]: Height 162.56 cm (08/11/17 10:06 AM) Blood Pressure 147/78 mmHg [90-140/60-90 mmHg] *HI* (08/11/17 10:06 AM) Peripheral Pulse 78 bpm Rate [60-100 bpm] (08/11/17 10:06 AM) Weight 72.273 kg (08/11/17 10:06 AM) Body Mass Index 27.35 m2 (08/11/17 10:06 AM) Problem List Condition Effective Dates Status Health Status Informant Excessive daytime Active sleepiness(Confirmed ) Fatigue(Confirmed) Active HTN - Active Hypertension(Confirm ed) Hyperlipidemia(Confi Active rmed) Hypertension(Confirm Active ed) Hypokalemia(Confirme Active d) Low Active testosterone(Confirm ed) Depression(Confirmed Active ) Prediabetes(Confirme Active d) Allergies, Adverse Reactions, Alerts Substance Reaction Severity Status NKFA Active NKDA Active Medications Testosterone Cypionate 200 mg/mL intramuscular solution 200 mg=1 ml, IM, q2wk, Please provide 3cc syringe with 23G x 1inch needles for I M injections, # 10 mL, 2 Refill(s) Start Date: 08/11/17 Stop Date: 02/02/19 Status: Ordered Results No data available for this section Immunizations Not Given Vaccine Date Status Refusal Reason influenza virus vaccine, inactivated 06/19/17 Not Given Parent Or Guardian Refuses Procedures Procedure Date Related Diagnosis Body Site Colonoscopy 2016 Social History Social History Type Response Exercise Exercise duration: 0. 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 Alcohol Current, Type Beer. Frequency: 1-2 times per week. Smoking Status Never smoker; Exposure to Tobacco Smoke None; Cigarette Smoking Last 365 Days No; Reg Smoking Cessation Counseling No Assessment and Plan No data available for this section
--- OUTSIDE RECORDS SUMMARY | 2018-08-04 05:27 | XMS REPORT | Summary of Care ---
Author Author [facility] Organization [facility] Address Unknown Phone Unavailable Encounter PHILL Flower(FIN) [phone] Date(s): 08/19/17 - 08/19/17 [facility] [address] [address], [address] [place], [place] [id number]- [phone] Discharge Disposition: Home or Self Care Attending Physician: Kacey Fields MD Vital Signs Most recent to 1 oldest [Reference Range]: Height 162.56 cm (08/19/17 2:51 PM) Temperature Oral 97.8 DegF [96.4-99.1 DegF] (08/19/17 2:51 PM) Blood Pressure 156/93 mmHg [90-140/60-90 mmHg] *HI* (08/19/17 2:51 PM) Respiratory Rate 14 BRMIN [14-20 BRMIN] (08/19/17 2:51 PM) Peripheral Pulse 57 bpm Rate [60-100 bpm] *LOW* (08/19/17 2:51 PM) Weight 71.023 kg (08/19/17 2:51 PM) Body Mass Index 26.88 m2 (08/19/17 2:51 PM) Problem List Condition Effective Dates Status Health [...] Severity Status NKFA Active NKDA Active Medications amLODIPine 10 mg oral tablet 10 mg=1 tab, PO, Daily, # 90 tab, 1 Refill(s), Pharmacy: [id number] Start Date: 08/19/17 Stop Date: 02/15/18 Status: Ordered sertraline 50 mg oral tablet 50 mg=1 tab, PO, Daily, # 90 tab, 1 Refill(s), Pharmacy: [id number] Start Date: 08/19/17 Stop Date: 02/15/18 Status: Ordered Results No data available for this section Immunizations Not Given Vaccine Date Status Refusal Reason influenza virus vaccine, inactivated 06/19/17 Not Given Parent Or Guardian Refuses Procedures Procedure Date Related Diagnosis Body Site Colonoscopy 2015 Social History Social History Type Response Exercise Exercise duration: 0. 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 Alcohol Current, Type Beer. Frequency: 1-2 times per week. Smoking Status Never smoker; Exposure to Tobacco Smoke None; Cigarette Smoking Last 365 Days No; Reg Smoking Cessation Counseling No Assessment and Plan No data available for this section
--- OUTSIDE RECORDS SUMMARY | 2018-08-04 05:27 | XMS REPORT | Summary of Care ---
Author Author [facility] Organization [facility] Address Unknown Phone Unavailable Encounter [employer](PIERO) [id number] Date(s): 06/18/17 - 06/22/17 [facility] [address] [place] [address]- Discharge Disposition: Home or Self Care Attending Physician: Salvador Carpio MD Admitting Physician: Salvador Carpio MD Vital Signs 1 2 3 Most recent to oldest [Reference Range]: 162.56 cm (06/18/17 4:10 PM) 160.02 cm (06/18/17 9:27 AM) Height 98.1 DegF (06/22/17 11:38 AM) 98.6 DegF (06/22/17 7:51 AM) 97.9 DegF (06/22/17 4:39 AM) Temperature Oral [96.4-99.1 DegF] 146/90 mmHg *HI* (06/22/17 11:38 AM) 144/79 mmHg *HI* (06/22/17 7:51 AM) 125/83 mmHg (06/22/17 4:39 AM) Blood Pressure [90-140/60-90 mmHg] 18 BRMIN (06/22/17 11:38 AM) 18 BRMIN (06/22/17 7:51 AM) 18 BRMIN (06/22/17 4:39 AM) Respiratory Rate [14-20 BRMIN] 52 bpm *LOW* (06/22/17 11:38 AM) 60 bpm (06/22/17 7:51 AM) 76 bpm (06/22/17 4:39 AM) Peripheral Pulse Rate [60-100 bpm] 71.008 kg (06/19/17 12:24 PM) 71.364 kg (06/18/17 4:10 PM) 70.909 kg (06/18/17 9:27 AM) Weight 27.01 m2 (06/18/17 4:10 PM) 27.69 m2 (06/18/17 9:27 AM) Body Mass Index Problem List Condition Effective Dates Status Health Status Informant Excessive daytime Active sleepiness(Confirmed ) Fatigue(Confirmed) Active HTN - Active Hypertension(Confirm ed) Hyperlipidemia(Confi Active rmed) Hypertension(Confirm Active ed) Hypokalemia(Confirme Active d) Low Active testosterone(Confirm ed) Depression(Confirmed Active ) Prediabetes(Confirme Active d) Allergies, Adverse Reactions, Alerts Substance Reaction Severity Status NKDA Active NKFA Active Medications acetaminophen 1,000 mg, Route: PO, Drug form: TAB, ONCE, Dosing Weight 70.909, kg, Priority: S TAT, Start date: 06/18/17 9:44:00 CDT, Stop date: 06/18/17 9:44:00 CDT Start Date: 06/18/17 Stop Date: 06/18/17 Status: Completed amLODIPine 5 mg, 1 tab, Route: PO, Drug form: TAB, Daily, Dosing Weight 71.008, kg, Start d ate: 06/20/17 21:00:00 CDT, Duration: 30 day, Stop date: 07/20/17 9:00:00 CDT Notes: (Same as: Oscar) Start Date: 06/20/17 Stop Date: 06/22/17 Status: Discontinued ampicillin + sodium chloride 0.9% INJ 100 mL 2 gm, Route: IVPB, [id number], Dosing Weight 71.364, kg, Start date: 06/19/17 12:00: 00 CDT, Duration: 30 day, Stop date: 07/19/17 6:00:00 CDT Notes: (Same as: Becki) MEDICATION WASTE Product Size: [address] Wasted: ___ mg Start Date: 06/19/17 Stop Date: 06/19/17 Status: Discontinued azithromycin + sodium chloride 0.9% INJ 250 mL 500 mg, Route: IVPB, ONCE, Dosing Weight 70.909, kg, Priority: STAT, Start date: 06/18/17 11:56:00 CDT, Duration: 1 doses or times, Stop date: 06/18/17 11:56:00 CDT, ABX Indication: Pneumonia Notes: (Same As: Zithromax IV) Start Date: 06/18/17 Stop Date: 06/18/17 Status: Completed azithromycin + sodium chloride 0.9% INJ 250 mL 500 mg, Route: IVPB, [id number], Dosing Weight 70.909, kg, Priority: Routine, Start date: 06/19/17 12:00:00 CDT, Duration: 5 day, Stop date: 06/23/17 21:00:00 CDT, ABX Indication: Pneumonia Notes: (Same As: Zithromax IV) Start Date: 06/19/17 Stop Date: 06/19/17 Status: Discontinued bisoprolol 10 mg, 2 tab, Route: PO, Drug form: TAB, Daily, Dosing Weight 71.008, kg, Start date: 06/21/17 9:00:00 CDT, Duration: 30 day, Stop date: 07/20/17 9:00:00 CDT Notes: (Same As: Zebeta) Start Date: 06/21/17 Stop Date: 06/22/17 Status: Discontinued cefTRIAXone + sodium chloride 0.9% INJ 100 mL 1 gm, Route: IVPB, ONCE, Start date: 06/19/17 13:32:00 CDT, Stop date: 06/19/17 13:32:00 CDT, ABX Indication: Other (specify in Comments) Notes: (Same As: Rocephin).Use with 100 mL NS and infuse over 30 min MEDICA TION WASTE Product Size: 1000 mgProduct Wasted: ___ mg Start Date: 06/19/17 Stop Date: 06/19/17 Status: Completed cefTRIAXone + sodium chloride 0.9% INJ 100 mL 1 gm, Route: IVPB, [id number], Dosing Weight 70.909, kg, Priority: Routine, Start d ate: 06/19/17 10:00:00 CDT, Duration: 5 day, Stop date: 06/23/17 10:00:00 CDT, A BX Indication: Pneumonia Notes: (Same As: Rocephin).Use with 100 mL NS and infuse over 30 min MEDICA TION WASTE Product Size: 1000 mgProduct Wasted: ___ mg Start Date: 06/19/17 Stop Date: 06/19/17 Status: Discontinued fenofibrate 145 mg oral tablet 145 mg, 1 tab, Route: PO, Drug form: TAB, Daily, Dosing Weight 71.008, kg, Start date: 06/21/17 9:00:00 CDT, Duration: 30 day, Stop date: 07/20/17 9:00:00 CDT Notes: (Same as: Tricor) Start Date: 06/21/17 Stop Date: 06/22/17 Status: Discontinued Florastor 250 mg oral capsule 250 mg=1 cap, PO, BID, PRN for loose stool, X 5 day, # 10 cap, 0 Refill(s), Phabonita dumont: [id number] Start Date: 06/22/17 Stop Date: 06/27/17 Status: Ordered influenza virus vaccine, inactivated 0.5 mL, Route: IM, Drug Form: SUSP, Daily, Start date: 06/19/17 9:00:00 CDT, Dur ation: 1 doses or times, Stop date: 06/19/17 9:00:00 CDT Notes: (Same as: Fluzone Quadrivalent, Fluarix Quadrivalent)For 3 years of age a nd older (0.5 mL IM)Shake well before use Start Date: 06/19/17 Stop Date: 06/19/17 Status: Completed Levaquin 750 mg, 3 tab, Route: PO, Drug form: TAB, [id number], Dosing Weight 71.008, kg, Sta rt date: 06/21/17 23:00:00 CDT, Duration: 7 day, Stop date: 06/27/17 23:00:00 CD T, ABX Indication: Other (specify in Comments) Notes: Do not give w/antacids, dairy pdt & minerals Take 1 hr before or 2 hr after dairy pdt (Same as:Levaquin) Start Date: 06/21/17 Stop Date: 06/22/17 Status: Discontinued levofloxacin 250 mg oral tablet 750 mg=3 tab, PO, [id number], X 5 day, # 15 tab, 0 Refill(s), [id number] Start Date: 06/22/17 Stop Date: 06/27/17 Status: Ordered Motrin 400 mg, 1 tab, Route: PO, Drug form: TAB, ONCE, Dosing Weight 71.364, kg, Start date: 06/18/17 18:30:00 CDT, Stop date: 06/18/17 18:30:00 CDT Notes: (Same as: Motrin)"Do Not Crush" Give with food. Start Date: 06/18/17 Stop Date: 06/18/17 Status: Completed Early 5/325 oral tablet 1 tab, Route: PO, Drug Form: TAB, Dosing Weight 71.008, kg, Q4H, PRN Pain Score 1-3, Start date: 06/19/17 20:41:00 CDT, Duration: 30 day, Stop date: 07/19/17 20 :40:00 CDT Notes: (Same as: Early 325/5) Do not exceed 4gm/day of acetaminophen. Start Date: 06/19/17 Stop Date: 06/22/17 Status: Discontinued ondansetron 4 mg, 2 mL, Route: IVP, Drug form: INJ, Q6H, Dosing Weight 70.909, kg, PRN Nause a & Vomiting, Start date: 06/18/17 14:03:00 CDT, Duration: 30 day, Stop date: 07/18/17 14:02:00 CDT Notes: (Same as: Shrutian) MEDICATION WASTE Product Size: 4 mgProduct Was akin: ___ mg Start Date: 06/18/17 Stop Date: 06/22/17 Status: Discontinued potassium chloride 20 mEq, 1 tab, Route: PO, Drug form: ERTAB, Q2H, Dosing Weight 71.008, kg, Start date: 06/20/17 12:00:00 CDT, Duration: 2 doses or times, Stop date: 06/20/17 14 :00:00 CDT Notes: (Same as: K-Dur 20)"Do Not Crush" With food and full glass of water Start Date: 06/20/17 Stop Date: 06/20/17 Status: Completed potassium chloride 10 mEq, 100 mL, Route: IVPB, Drug form: INJ, Q1H, Dosing Weight 70.909, kg, Tota l Dose=40 meq, Start date: 06/18/17 12:00:00 CDT, Duration: 4 doses or times, St op date: 06/18/17 15:00:00 CDT, Peripheral Line Notes: Infuse at a rate of 10 mEq/hr.(Same as: KCL) Start Date: 06/18/17 Stop Date: 06/18/17 Status: Completed potassium chloride 20 mEq oral tablet, extended release 20 mEq, 1 tab, Route: PO, Drug form: ERTAB, Daily, Dosing Weight 71.008, kg, Sta rt date: 06/21/17 9:00:00 CDT, Duration: 30 day, Stop date: 07/20/17 9:00:00 CDT Notes: (Same as: K-Dur 20)"Do Not Crush" With food and full glass of water Start Date: 06/21/17 Stop Date: 06/22/17 Status: Discontinued Rocephin 1 gm, Route: IVPB, Drug form: PDR/INJ, ONCE, Dosing Weight 70.909, kg, Priority: STAT, Start date: 06/18/17 9:45:00 CDT, Duration: 1 doses or times, Stop date: 06/18/17 9:45:00 CDT, ABX Indication: ED - Suspected Sepsis Start Date: 06/18/17 Stop Date: 06/18/17 Status: Completed Rocephin + sodium chloride 0.9% INJ 100 mL 2 gm, Route: IVPB, [id number], Dosing Weight 71.364, kg, Start date: 06/20/17 9:00: 00 CDT, Duration: 5 day, Stop date: 06/24/17 21:00:00 CDT, ABX Indication: Other (specify in Comments) Notes: (Same As: Rocephin).Use with 100 mL NS and infuse over 30 min MEDICA TION WASTE Product Size: 2000 mgProduct Wasted: ___ mg Start Date: 06/20/17 Stop Date: 06/21/17 Status: Discontinued Rocephin + sodium chloride 0.9% INJ 100 mL 2 gm, Route: IVPB, [id number], Dosing Weight 71.364, kg, Start date: 06/19/17 12:00 :00 CDT, Duration: 5 day, Stop date: 06/24/17 9:00:00 CDT, ABX Indication: Other (specify in Comments) Notes: (Same As: Rocephin).Use with 100 mL NS and infuse over 30 min MEDICA TION WASTE Product Size: 2000 mgProduct Wasted: ___ mg Start Date: 06/19/17 Stop Date: 06/19/17 Status: Deleted Sodium Chloride 0.9% (Bolus) IV 1,000 mL, Infuse Over: 1 hr, Route: IV, ONCE, Priority: STAT, Dosing Weight 70.9 09 kg, Start date: 06/18/17 9:44:00 CDT, Duration: 1 doses or times, Stop date: 06/18/17 9:44:00 CDT Start Date: 06/18/17 Stop Date: 06/18/17 Status: Completed Tylenol 325 mg, 1 tab, Route: PO, Drug form: TAB, Q6H, Dosing Weight 71.364, kg, PRN Kelsy n Score 1-3, Start date: 06/19/17 11:14:00 CDT, Duration: 30 day, Stop date: 11:13:00 CDT Notes: Do not exceed 4 gm/day. (Same as: Tylenol) Start Date: 06/19/17 Stop Date: 06/22/17 Status: Discontinued Tylenol 500 mg, PO, Q6H, PRN Pain 1-3/Temp > 100.4 F, 0 Refill(s) Start Date: 06/18/17 Stop Date: 06/22/17 Status: Discontinued Tylenol 650 mg, 20.3 mL, Route: PO, Drug form: LIQ, Q6H, Dosing Weight 71.364, kg, PRN P ain 4-6/Temp > 100.4 F, Start date: 06/19/17 4:08:00 CDT, Duration: 30 day, Stop date: 07/19/17 4:07:00 CDT Notes: Max [id number]/day (4 gm/day). (Same as: Tylenol) Start Date: 06/19/17 Stop Date: 06/19/17 Status: Voided With Results vancomycin + sodium chloride 0.9% INJ 250 mL 1,000 mg, Route: IVPB, [id number], Dosing Weight 71.008, kg, Start date: 06/20/17 1 :00:00 CDT, Duration: 2 day, Stop date: 06/21/17 13:00:00 CDT, ABX Indication: F ever of Unknown Source 0-60 days of age Notes: TIME CRITICAL MEDICATION(Same As: Vancocin)Infusion rate< 1000 mg: infuse over 1 [id number] - 1500 mg: infuse over 1.5 [id number] - 2000 mg: infuse over 2 hours> 2001 mg: infuse over 2.5 hours MEDICATION WASTE Product Size: 1000 mgProduct Wasted: ___ mg Start Date: 06/20/17 Stop Date: 06/21/17 Status: Completed vancomycin + sodium chloride 0.9% INJ 250 mL 1 gm, Route: IV, ONCE, Dosing Weight 71.364, kg, Priority: NOW, Start date: 05/23 11:13:00 CDT, Stop date: 06/19/17 11:13:00 CDT, ABX Indication: Pneumonia Notes: TIME CRITICAL MEDICATION(Same As: Vancocin)Infusion rate< 1000 mg: infuse over 1 [id number] - 1500 mg: infuse over 1.5 [id number] - 2000 mg: infuse over 2 hours> 2001 mg: infuse over 2.5 hours MEDICATION WASTE Product Size: 1000 mgProduct Wasted: ___ mg Start Date: 06/19/17 Stop Date: 06/19/17 Status: Completed vancomycin + sodium chloride 0.9% INJ 250 mL 1,000 mg, Route: IVPB, [id number], Dosing Weight 71.008, kg, Start date: 06/19/17 2 0:00:00 CDT, Duration: 2 day, Stop date: 06/21/17 8:00:00 CDT, ABX Indication: F ever of Unknown Source 0-60 days of age Notes: TIME CRITICAL MEDICATION(Same As: Vancocin)Infusion rate< 1000 mg: infuse over 1 [id number] - 1500 mg: infuse over 1.5 [id number] - 2000 mg: infuse over 2 hours> 2001 mg: infuse over 2.5 hours MEDICATION WASTE Product Size: 1000 mgProduct Wasted: ___ mg Start Date: 06/19/17 Stop Date: 06/19/17 Status: Discontinued Results ELECTROLYTES 1 2 3 Most recent to oldest [Reference Range]: 137 mEq/L (06/22/17 4:42 AM) 135 mEq/L (06/21/17 5:04 AM) 130 mEq/L *LOW* (06/20/17 4:13 AM) Sodium Lvl [135-145 mEq/L] 3.5 mEq/L (06/22/17 4:42 AM) 3.2 mEq/L *LOW* (06/21/17 5:04 AM) 3.1 mEq/L *LOW* (06/20/17 4:13 AM) Potassium Lvl [3.5-5.1 mEq/L] 101 mEq/L (06/22/17 4:42 AM) 100 mEq/L (06/21/17 5:04 AM) 97 mEq/L (06/20/17 4:13 AM) Chloride Lvl [95-109 mEq/L] 26 mEq/L (06/22/17 4:42 AM) 27 mEq/L (06/21/17 5:04 AM) 21 mEq/L *LOW* (06/20/17 4:13 AM) CO2 [24-32 mEq/L] 13.5 mEq/L (06/22/17 4:42 AM) 11.2 mEq/L (06/21/17 5:04 AM) 15.1 mEq/L (06/20/17 4:13 AM) AGAP [10.0-20.0 mEq/L] CHEM PANEL 1 2 3 Most recent to oldest [Reference Range]: 0.84 mg/dL (06/22/17 4:42 AM) 0.73 mg/dL (06/21/17 5:04 AM) 0.88 mg/dL (06/20/17 4:13 AM) Creatinine Lvl [0.50-1.40 mg/dL] 96 mL/min/1.73m2 1 *NA* (06/22/17 4:42 AM) 102 mL/min/1.73m2 2 *NA* (06/21/17 5:04 AM) 94 mL/min/1.73m2 3 *NA* (06/20/17 4:13 AM) eGFR 10 mg/dL (06/22/17 4:42 AM) 7 mg/dL (06/21/17 5:04 AM) 10 mg/dL (06/20/17 4:13 AM) BUN [7-22 mg/dL] 11 (06/20/17 4:13 AM) 15 (06/19/17 3:30 AM) 11 (06/18/17 9:53 AM) B/C Ratio [6-25] 118 mg/dL *HI* (06/22/17 4:42 AM) 121 mg/dL *HI* (06/21/17 1:32 PM) 117 mg/dL *HI* (06/21/17 5:04 AM) Glucose Lvl [70-99 mg/dL] 6.7 g/dL (06/20/17 4:13 AM) 7.4 g/dL (06/19/17 3:30 AM) 8.2 g/dL (06/18/17 9:53 AM) Total Protein [6.4-8.4 g/dL] 2.5 g/dL *LOW* (06/20/17 4:13 AM) 2.6 g/dL *LOW* (06/19/17 3:30 AM) 3.3 g/dL *LOW* (06/18/17 9:53 AM) Albumin Lvl [3.5-5.0 g/dL] 4.2 g/dL (06/20/17 4:13 AM) 4.8 g/dL *HI* (06/19/17 3:30 AM) 4.9 g/dL *HI* (06/18/17 9:53 AM) Globulin [2.7-4.2 g/dL] 0.6 *LOW* (06/20/17 4:13 AM) 0.5 *LOW* (06/19/17 3:30 AM) 0.7 (06/18/17 9:53 AM) A/G Ratio [0.7-1.6] 8.5 mg/dL (06/22/17 4:42 AM) 8.2 mg/dL *LOW* (06/21/17 5:04 AM) 8.0 mg/dL *LOW* (06/20/17 4:13 AM) Calcium Lvl [8.5-10.5 mg/dL] 2.1 mg/dL (06/21/17 5:04 AM) 2.1 mg/dL (06/19/17 3:30 AM) Magnesium Lvl [1.8-2.4 mg/dL] 96 unit/L *HI* (06/20/17 4:13 AM) 74 unit/L *HI* (06/19/17 3:30 AM) 74 unit/L *HI* (06/18/17 9:53 AM) ALT [0-65 unit/L] 84 unit/L *HI* (06/20/17 4:13 AM) 74 unit/L *HI* (06/19/17 3:30 AM) 92 unit/L *HI* (06/18/17 9:53 AM) AST [0-37 unit/L] 168 unit/L *HI* (06/20/17 4:13 AM) 143 unit/L *HI* (06/19/17 3:30 AM) 146 unit/L *HI* (06/18/17 9:53 AM) Alk Phos [39-136 unit/L] 302 unit/L *HI* (06/19/17 8:21 PM) LDH [98-192 unit/L] 0.6 mg/dL (06/20/17 4:13 AM) 0.7 mg/dL (06/19/17 3:30 AM) 0.8 mg/dL (06/18/17 9:53 AM) Bili Total [0.2-1.3 mg/dL] 709 unit/L *HI* (06/20/17 4:13 AM) 670 unit/L *HI* (06/18/17 9:53 AM) Lipase Lvl [73-393 unit/L] 1.4 mMol/L (06/20/17 4:13 AM) 1.5 mMol/L (06/18/17 9:53 AM) Lactic Acid Lvl [0.5-2.2 mMol/L] 0.33 ng/mL *HI* (06/19/17 8:21 PM) Procalcitonin Lvl [0.00-0.10 ng/mL] 1Result Comment: The eGFR is calculated using [...] be mul tiplied by the estimated BMI. 2Result Comment: The eGFR is calculated using [...] tiplied by the estimated BMI. CARDIAC ENZYMES 1 2 3 Most recent to oldest [Reference Range]: 0.03 ng/mL (06/18/17 9:53 AM) Troponin-I [0.00-0.40 ng/mL] LIPIDS 1 2 3 Most recent to oldest [Reference Range]: 6.27 (06/19/17 3:30 AM) CHD Risk [4.00-7.30] 138 mg/dL (06/19/17 3:30 AM) Chol [<=199 mg/dL] 227 mg/dL *HI* (06/19/17 3:30 AM) Trig [<=149 mg/dL] 22 mg/dL *LOW* (06/19/17 3:30 AM) HDL [>=61 mg/dL] 71 mg/dL (06/19/17 3:30 AM) LDL (Calculated) [<=99 mg/dL] 45 *NA* (06/19/17 3:30 AM) VLDL SPECIAL CHEMISTRY 1 2 3 Most recent to oldest [Reference Range]: 6.5 % *HI* (06/19/17 3:30 AM) Hgb A1C [<=5.6 %] URINE AND STOOL 1 2 3 Most recent to oldest [Reference Range]: Slight *ABN* (06/18/17 9:53 AM) UA Turbidity [Clear] Jaqueline *NA* (06/18/17 9:53 AM) UA Color 6.0 (06/18/17 9:53 AM) UA pH [5.0-8.0] 1.026 (06/18/17 9:53 AM) UA Spec Grav [<=1.030] 50 mg/dL *ABN* (06/18/17 9:53 AM) UA Glucose [Negative mg/dL] Moderate *ABN* (06/18/17 9:53 AM) UA Blood [Negative] Trace mg/dL *ABN* (06/18/17 9:53 AM) UA Ketones [Negative mg/dL] 100 mg/dL *ABN* (06/18/17 9:53 AM) UA Protein [Negative mg/dL] <=1.0 mg/dL *NA* (06/18/17 9:53 AM) UA Urobilinogen [0.1-1.0 mg/dL] Negative *NA* (06/18/17 9:53 AM) UA Bili [Negative] Negative (06/18/17 9:53 AM) UA Leuk Est [Negative] Negative (06/18/17 9:53 AM) UA Nitrite [Negative] 9 /HPF *HI* (06/18/17 9:53 AM) UA WBC [0-5 /HPF] 6 /HPF *HI* (06/18/17 9:53 AM) UA RBC [0-2 /HPF] Occasional /HPF *NA* (06/18/17 9:53 AM) UA Bacteria [None Seen /HPF] None Seen *NA* (06/18/17 9:53 AM) UA Sq Epi Few /LPF *NA* (06/18/17 9:53 AM) UA Mucus [None Seen /LPF] IMMUNOLOGY 1 2 3 Most recent to oldest [Reference Range]: 131.0 mg/L *HI* (06/19/17 8:21 PM) CRP [<=2.9 mg/L] Negative *NA* (06/19/17 8:21 PM) Hep Bs Ag [Negative] Negative *NA* (06/19/17 8:21 PM) Hep B Core IgM [Negative] Negative *NA* (06/19/17 8:21 PM) Hep A IgM [Negative] Negative *NA* (06/19/17 8:21 PM) Hep C Ab HEMATOLOGY 1 2 3 Most recent to oldest [Reference Range]: 3.7 K/CMM (06/22/17 4:42 AM) 4.5 K/CMM (06/21/17 5:04 AM) 4.6 K/CMM (06/20/17 4:13 AM) WBC [3.7-10.4 K/CMM] 4.23 M/CMM *LOW* (06/22/17 4:42 AM) 4.28 M/CMM *LOW* (06/21/17 5:04 AM) 4.12 M/CMM *LOW* (06/20/17 4:13 AM) RBC [4.70-6.10 M/CMM] 13.2 g/dL *LOW* (06/22/17 4:42 AM) 13.3 g/dL *LOW* (06/21/17 5:04 AM) 12.8 g/dL *LOW* (06/20/17 4:13 AM) Hgb [14.0-18.0 g/dL] 37.6 % *LOW* (06/22/17 4:42 AM) 37.6 % *LOW* (06/21/17 5:04 AM) 36.5 % *LOW* (06/20/17:13 AM) Hct [42.0-54.0 %] 88.9 fL (06/22/17 4:42 AM) 87.9 fL (06/21/17 5:04 AM) 88.7 fL (06/20/17 4:13 AM) MCV [80.0-94.0 fL] 31.3 pg *HI* (06/22/17 4:42 AM) 31.0 pg (06/21/17 5:04 AM) 31.2 pg *HI* (06/20/17 4:13 AM) MCH [27.0-31.0 pg] 35.2 g/dL (06/22/17 4:42 AM) 35.3 g/dL (06/21/17 5:04 AM) 35.1 g/dL (06/20/17 4:13 AM) MCHC [32.0-36.0 g/dL] 13.6 % (06/22/17 4:42 AM) 13.7 % (06/21/17 5:04 AM) 13.7 % (06/20/17 4:13 AM) RDW [11.5-14.5 %] 258 K/CMM (06/22/17 4:42 AM) 209 K/CMM (06/21/17 5:04 AM) 162 K/CMM (06/20/17 4:13 AM) Platelet [133-450 K/CMM] 7.5 fL (06/22/17 4:42 AM) 8.0 fL (06/21/17 5:04 AM) 8.4 fL (06/20/17 4:13 AM) MPV [7.4-10.4 fL] 57.5 % (06/22/17 4:42 AM) 59.4 % (06/21/17 5:04 AM) 65.6 % (06/20/17 4:13 AM) Segs [45.0-75.0 %] 27.9 % (06/22/17 4:42 AM) 27.6 % (06/21/17 5:04 AM) 23.0 % (06/20/17 4:13 AM) Lymphocytes [20.0-40.0 %] 10.2 % (06/22/17 4:42 AM) 9.2 % (06/21/17 5:04 AM) 9.1 % (06/20/17 4:13 AM) Monocytes [2.0-12.0 %] 3.9 % (06/22/17 4:42 AM) 3.1 % (06/21/17 5:04 AM) 1.7 % (06/20/17 4:13 AM) Eosinophils [0.0-4.0 %] 0.5 % (06/22/17 4:42 AM) 0.7 % (06/21/17 5:04 AM) 0.6 % (06/20/17 4:13 AM) Basophils [0.0-1.0 %] 2.1 K/CMM (06/22/17 4:42 AM) 2.7 K/CMM (06/21/17 5:04 AM) 3.0 K/CMM (06/20/17 4:13 AM) Segs-Bands # [1.5-8.1 K/CMM] 1.0 K/CMM (06/22/17 4:42 AM) 1.2 K/CMM (06/21/17 5:04 AM) 1.1 K/CMM (06/20/17 4:13 AM) Lymphocytes # [1.0-5.5 K/CMM] 0.4 K/CMM (06/22/17 4:42 AM) 0.4 K/CMM (06/21/17 5:04 AM) 0.4 K/CMM (06/20/17 4:13 AM) Monocytes # [0.0-0.8 K/CMM] 0.1 K/CMM (06/22/17 4:42 AM) 0.1 K/CMM (06/21/17 5:04 AM) 0.1 K/CMM (06/20/17 4:13 AM) Eosinophils # [0.0-0.5 K/CMM] 13.5 seconds (06/21/17 1:32 PM) PT [12.0-14.7 seconds] 1.01 (06/21/17 1:32 PM) INR [0.85-1.17] BACTERIAL - SEROLOGY 1 2 3 Most recent to oldest [Reference Range]: Urine *NA* (06/20/17 12:50 AM) Source Strep Negative (06/20/17 12:50 AM) Strep pneumoniae Ag [Negative] VIRAL - SEROLOGY 1 2 3 Most recent to oldest [Reference Range]: Negative (06/18/17 12:45 PM) Influ A [Negative] Negative (06/18/17 12:45 PM) Influ B [Negative] Immunizations Not Given Vaccine Date Status Refusal Reason influenza virus vaccine, inactivated 06/19/17 Not Given Parent Or Guardian Refuses Procedures Procedure Date Related Diagnosis Body Site Colonoscopy 2015 Social History Social History Type Response Exercise Exercise duration: 0. 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 Alcohol Current, Type Beer. Frequency: 1-2 times per week. Smoking Status Never smoker; Exposure to Tobacco Smoke None; Cigarette Smoking Last 365 Days No; Reg Smoking Cessation Counseling No Assessment and Plan Extracted from: Title: Progress Note Author: Salvador Carpio Date: 06/21/17 Impression and Plan Community acquired pneumonia Fever Generalized weakness Transaminitis Hypokalemia Hyponatremia Acute cystitis partially treated Hypertension essential benign Dyslipidemia Prediabetes Plan: Continue IV antibiotics, ID eval appreciated, cont iv vanc and rocephin per ID. Patient has headache associated with low-grade fever, LP will be low yield since patient already got antibiotic in ER, no nuchal rigidity/photophobia/altered sensorium Replace electrolytes as necessary Follow cultures Patient has been treated for questionable flulike symptoms and urinary tract infection with Keflex and Tamiflu last week but patient continued to have symptoms. check urineLegionella and urine strep pneumonia antigen Monitor hematinics debility closely patient condition get worse patient may be updated to IMCU or ICU status DVT prophylaxis=SCD device, patient is ambulatory dispo=LP has been ordered but will be low yield, cont IV abx, follow cultures. clinically better.potassium replaced, Amlodipine and Bisoprolol resumed. 06/21=clinically better; cont current iv abx; Patient doesn't want LP'; culture negatives; pending final ID recs; Anticipate DC in am if stable. Extracted from: Title: Clinical Document Author: Yelitza Pierre MD Date: 06/19/17 INFECTIOUS DISEASES CONSULTATION NOTE Yelitza Pierre M.D. Attending: Salvador Carpio [facility]: Service: Internal Medicine Code status: Full Code [Ordered] Reason for Admission: SIRS, PNA, DYSURIA Working DRG: Septicemia or severe sepsis w/o MV 96+ hours w/o PENITENTIARY Isolation: None Documented Consulting Physicians: Harry Kowalski MDOffice: Service: Infectious Disease Yelitza Pierre MDOffice: Service: Infectious Disease HPI: 57-year-old patient with a past medical history of hypertension, diabetes mellitus presented to ER with a fever over the past few days patient also complains of chills, nausea, vomiting and muscle aches. Patient started having symptoms last weekend patient was seen by family physician who treated him empirically for flulike symptoms with Tamiflu. Patient was also given Keflex at that time for possible urinary tract infection. Patient has become more weaker over the past few days and also not eating well. [place] and had temp 103 and started having temporal headaches. PAST MEDICAL HISTORY: Hypertension Dyslipidemia Prediabetes Depression SURGICAL HISTORY: Colonoscopy: 2016 FAMILY HISTORY: Mother: Heart disease; High blood pressure Allergies (2) ActiveReaction NKDANone documented NKFANone documented SOCIAL HISTORY: Employment/School Details: Status: Employed. 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 Alcohol Details: Current, Type Beer. Frequency: 1-2 times per week. Exercise Details: Exercise duration: 0. Tobacco Details: Use: Never smoker. Tobacco smoke exposure: None. Did the Patient Smoke Cigarettes Anytime During the Last 365 Days? No. Cessation Counseling Provided? No. Details: Use: Never smoker. Tobacco smoke exposure: None. Did the Patient Smoke Cigarettes Anytime During the Last 365 Days? No. Cessation Counseling Provided? No. ROS: GENERAL: No change in appetite, energy or weight. No fever, chills or sweats. HEENT: No auditory or visual complaints. No tinnitus. No pharyngeal complaints RESPIRATORY: [place], SOB. CARDIOVASCULAR: No chest pain or pressure. No palpitations GASTROINTESTINAL: No dysphagia, odynophagia, heartburn, diarrhea or constipation. No nausea or vomiting. MUSCULOSKELETAL: No myalgias, arthralgias, joint swelling. NEUROLOGICAL: No vertigo or disturbance of balance or coordination.No motor or sensory complaints. No headache. GENITOURINARY: No dysuria, urgency or urinary frequency. No incontinence. DERMATOLOGIC: No complaint of skin lesions or rashes. No change MEDICATIONS: Scheduled Meds (2): 06/20/17 cefTRIAXone + sodium chloride 0.9% INJ 100 mL (Rocephin + sodium chloride 0.9% INJ 100 mL) 2 gm IVPB [id number] 200 ml/hr 06/19/17 vancomycin 1,000 mg IVPB [id number] VITAL SIGNS: VitalsTmp(F)[id number] 06/19 [id number]--- 06/19 [id number]--- 06/19 07:[id number]--- 06/19 03:[id number]--- 06/18 23:[id number]--- 24 Hr Tmax: 100.9F (38.28c) at 06/19 03:50Vital Signs are the last 5 in the past 48 hours. PHYSICAL EXAMINATION: GENERAL: Well-developed, well-nourished in no apparent distress. SKIN: Warm and dry with good color. No rash. No tissue breakdown, bleeding or bruising. HEENT: Head is normocephalic and atraumatic. PERRLA, EOMI, NECK: Supple. No carotid bruits. No lymphadenopathy or thyromegaly. CHEST: Symmetrical with equal expansion. LUNGS: CTA HEART: RRR, no murmurs. . GASTROINTESTINAL: Bowel sounds are normal. Soft, NT, ND. No guarding or rebound tenderness. EXTREMITIES: No edema or varicosities. Pulses 2+ symmetric. NEUROLOGIC: Cranial nerves II through XII are grossly intact. LABS: Labs (Last four charted values) WBC 5.8(JUN 19)6.6(JUN 18) Hgb 14.3(JUN 19)14.4(JUN 18) Hct L 41.0(JUN 19)L 40.5(JUN 18) Plt 143(JUN 19)152(JUN 18) Na L 132(JUN 19)L 124(JUN 18) K 3.7(JUN 19)C 2.9(JUN 18) CO2 L 23(JUN 19)24(JUN 18) Cl 99(JUN 19)L 88(JUN 18) Cr 0.96(JUN 19)1.30(JUN 18) BUN 14(JUN 19)14(JUN 18) Glucose Random H 110(JUN 19)H 147(JUN 18) Mg 2.1(JUN 19) Ca L 8.4(JUN 19)8.5(JUN 18) Troponin 0.03(JUN 18) CULTURES: DATE/SOURCE/RESULT/ SENSITIVITIES: IMAGING: ASSESMENT AND PLAN: 57 year old male with fever PNA Viral process R/o meningitis headaches abnormal lipase abnormal LFTS As per infectious diseases stand point , patient was seen and evaluated , history id not clear d/w attending for LP. Headaches is more temporal. Check serum procal level stat. cehck viral panel recommend to repeat LFTS and amylase and lipase cont empiric iV abx for now and follow cx closely We will continue to follow. Thank you for providing me the opportunity to take care of this patient. Extracted from: Title: General Admission H&P Author: Salvador Carpio Date: 06/18/17 MD Impression and Plan Impression: Community acquired pneumonia Fever Generalized weakness Transaminitis Hypokalemia Hyponatremia Acute cystitis partially treated Hypertension essential benign Dyslipidemia Prediabetes Plan: Admit to medicine, activity as tolerated, diet heart healthy We will admit for community acquired pneumonia and further evaluation since patient is feeling very weak, having nausea, inability to walk, patient is having cough tachypnea fever We will start on empiric Rocephin and Zithromax Oxygen support as needed Follow urine culture and blood culture We will reconcile home medication when available We will closely follow Monitor hemodynamic stability patient condition gets worse patient may be upgraded to IMCU or ICU status Prognosis guarded DVT prophylaxis with the Lovenox subcu GI prophylaxis with Pepcid Repeat BM P for electrolytes along with liver function test. Check HbA1c Replace electrolyte as needed.
--- OUTSIDE RECORDS SUMMARY | 2018-08-04 05:27 | XMS REPORT | Summary of Care ---
Author Author [facility] Organization [facility] Address Unknown Phone Unavailable Encounter [facility] Collinr_trent(FIN) [id number] Date(s): 11/12/17 - 11/12/17 [facility] [address] [place] [address] [phone] Attending Physician: Tarun Leiva MD Vital Signs No data available for this [...] duration: 0. 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 Alcohol Current, Type Beer. Frequency: 1-2 times per week. Smoking Status Never smoker; Exposure to Tobacco Smoke None; Cigarette Smoking Last 365 Days No; Reg Smoking Cessation Counseling No entered on: 08/19/17 Assessment and Plan No data available for this section
--- OUTSIDE RECORDS SUMMARY | 2018-08-04 05:27 | XMS REPORT | Summary of Care ---
Author Author [facility] Organization [facility] Address Unknown Phone Unavailable Encounter HQ Halinantr_aliceleste(FIN) [id number] Date(s): 09/16/17 - 09/16/17 [facility] [address], [address] [place] [address]- [phone] Attending Physician: Kacey Fields MD Vital Signs No data available for [...] duration: 0. 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 Alcohol Current, Type Beer. Frequency: 1-2 times per week. Smoking Status Never smoker; Exposure to Tobacco Smoke None; Cigarette Smoking Last 365 Days No; Reg Smoking Cessation Counseling No Assessment and Plan No data available for this section
[2018-08-04 08:20] VITALS: BP 150/88
== END | disposition home or self-care (01) ==
LOC: OR 05:22
PROVIDERS: ATTEND Ophthalmology
DX: H25.12 Age-related nuclear cataract, left eye (principal); I10 Essential (primary) hypertension; E11.9 Type 2 diabetes mellitus without complications; Z79.4 Long term (current) use of insulin; Z01.810 Encounter for preprocedural cardiovascular examination; Z01.812 Encounter for preprocedural laboratory examination
CPT/HCPCS: 36415 ×2; 66984; 80048; 82948; 84132; 85014; 85018; 93005; J0171; J2001 ×2; J2704; J3480; V2632